=== PATIENT | female | born 1960 | race Caucasian/White ===

== ENCOUNTER 2016-09-22 09:10 | Inpatient (IN) | payer OTHER, MEDICAID ==
[~2016-09-22] VITALS: Ht 152.4 cm; Wt 61.2 kg
[~2016-09-22 09:10] MED LIST: BISCOLAX10 MG RC; CHLOROPHYLL PO; CLINDAMYCIN300 MG PO; FLEET ENEMA 13133 ML RC; LANOXIN0.25 MG PO; LEVAQUIN500 MG PO; MAPAP325 MG PO; OYSTER SHELL CA PO; POLYETHYLENE GLYCOL PO; PRILOSEC40 MG PO; REGLAN10 MG PO; TAB-A-VITE W/IR1 TAB PO; VITAMIN D; [UNRECOGNIZED DRUG - OTHER] PO; [UNRECOGNIZED DRUG - OTHER] PO
--- NOTE | 2016-09-22 09:10 | NUR ---
PATIENT BIB [facility] TO ER BED 4.
[2016-09-22 09:13] VITALS: BP 124/72
--- NOTE | 2016-09-22 09:15 | NUR ---
56F ADRIANA FROM [facility] C/O VOMITING X 0630 THIS MORNING; PER EMS, PT HAD 4 EPISODES OF VOMITING WHICH STOPPED AT 0730, AND NO VOMITING NOTED SINCE; ABDOMEN SOFT, NON-TENDER, ACTIVE BOWEL SOUNDS X 4 QUADRANTS; PT ALERT, APHASIC, PERRL, BUT ABLE TO FOLLOW SIMPLE COMMANDS; BL CONTRACTURES NOTED TO UPPER EXTREMITIES; PT ABLE TO TRAFFIC MAINTENANCE OFFICER BL HANDS WHEN ASKED, W/ MODERATE WEAKNESS; BL LUNG SOUNDS CLEAR, RR EVEN/UNLABORED, SKIN IS WARM/DRY AT THIS TIME; PT NOTED W/ DIAPER; HX: PROFOUND INTELLECTUAL DISORDER, CEREBRAL PALSY, PARA PLEGIA, ESOPHAGITIS, DYSPHAGIA, GERD, HERNIA, SCOLIOLIS, HYPOTHROIDISM, ARTHRITIS, MASTECTOMY TO LEFT BREAST. PT PLACED ON MONITOR, RESTING IN BED W/ HOB ELEVATED AND IN LOWEST POSITION; POSITIONED FOR COMFORT; ER MD MADE AWARE OF STATUS. WILL CONTINUE TO MONITOR. Addendum: 09/22/16 at 1228 by MEDSS PT NOTED W/ HEALED OLD SCAR TO RT HIP.
[2016-09-22] MEDS ORDERED: NACL 0.9% 1,000 ML IV SCH (09:18)
--- NOTE | 2016-09-22 09:18 | NUR ---
Patient being evaluated by physician at bedside.
[2016-09-22] MEDS ORDERED: ONDANSETRON 4 MG/2 ML VIAL IVP ONE (09:20)
[2016-09-22] MEDS ORDERED: FAMOTIDINE 20 MG/2 ML VIAL IVP ONE (09:20)
[2016-09-22] MEDS ORDERED: BENZTROPINE PO (09:25)
[2016-09-22] MEDS ORDERED: LACTULOSE10 GM/152 PO (09:26)
[2016-09-22] MEDS ORDERED: RANITIDINE HCL150 M2 PO (09:27)
[2016-09-22] MEDS ORDERED: SYNTHROID0.05 MG PO (09:27)
[2016-09-22] MEDS ORDERED: THERA-M W/MINER1 TAB PO (09:28)
[2016-09-22] MEDS ORDERED: LOTRIMIN 1%30 GM TP (09:29)
[2016-09-22] MEDS ORDERED: FLEET ENEMA 13133 ML RC (09:30)
[2016-09-22] MEDS ORDERED: IMODIUM2 MG PO (09:31)
[2016-09-22] MEDS ORDERED: ROBAFEN DM 10120 ML PO (09:31)
--- NOTE | 2016-09-22 10:18 | NUR ---
Patient appears to be resting comfortably in bed. Vital Signs within normal limits. Respirations even and unlabored. WILL CONTINUE TO MONITOR.
--- NOTE | 2016-09-22 11:20 | NUR ---
Patient appears to be resting comfortably in bed. Vital Signs within normal limits. Respirations even and unlabored. AGENTS' RECORDS CLERK AT BEDSIDE. WILL CONTINUE TO MONITOR.
[2016-09-22] MEDS ORDERED: FUROSEMIDE 40 MG/4 ML VIAL IVP ONE (11:40)
[2016-09-22] MEDS ORDERED: NACL 0.9% 1,000 ML IV ONE (11:40)
[2016-09-22] MEDS ORDERED: HYDROcodone/APAP 5/325 MG 1 TAB TAB PO PRN (12:10)
[2016-09-22] MEDS ORDERED: MORPHINE SULFATE 2 MG/ML SYR IVP PRN (12:10)
[2016-09-22] MEDS ORDERED: ONDANSETRON 4 MG/2 ML VIAL IVP PRN (12:10)
[2016-09-22] MEDS ORDERED: ACETAMINOPHEN 325 MG TAB PO PRN ×2 (12:10→16:05)
--- NOTE | 2016-09-22 12:37 | NUR ---
CALLED RN CATRACHO TO GIVE REPORT; STATES IN A PROCEDURE WITH ANOTHER PT; WILL CALL BACK FOR REPORT WHEN FINISHED.
--- NOTE | 2016-09-22 13:15 | NUR ---
Sergio mcrae in [facility] - 09/22/16 at 1323 by SAMM REPORT GIVEN TO ADRIÁN MONIQUE.
--- NOTE | 2016-09-22 13:15 | NUR ---
REPORT GIVEN TO DARIÁN MONIQUE; ENDORSED MESSAGE TO ADRIÁN MONIQUE THAT ADRIÁN VICTOR AT [facility] SHOULD BE CALLED FOR DISCHARGE INSTRUCTIONS WHEN PT READY TO BE DISCHARGED AT [phone].
--- NOTE | 2016-09-22 13:22 | NUR ---
Patient will be admitted to care of DR. MANCIA. Admited to MED-SURG. Will go to room 124A. Belongings list completed. Report to ADRIÁN MONIQUE.
[2016-09-22 13:40] VITALS: BP 146/87
--- NOTE | 2016-09-22 13:40 | NUR ---
PT. AWAKE, AROUSABLE TO NAME, FOLLOWS COMMANDS, APHASIC. NO SIGNS OF ACUTE DISTRESS, BREATHING BILATERAL AND SYMMETRICAL, ABDOMEN SOFT NO CURRENT EPISODES OF VOMITING AND NO SIGNS OF NAUSEA, SKIN INTACT WITH BILATERAL HEALED SCARS ON HIPS, PARAPLEGIC OFFLOAD TO PRESSURE AREAS, BOWEL AND BLADDER INCONTINENCE, FLACC SCORE 0, BED IN LOW POSITION WITH BILATERAL HALF SIDE RAILS UP, SAFETY PRECAUTIONS MAINTAINED. IV PATENT NO SIGNS OF REDNESS.
--- NOTE | 2016-09-22 14:20 | NUR ---
PT. PULLED OUT IV. WILL TRY TO REINSERT ORDERED.
[2016-09-22] MEDS ORDERED: LEVOFLOXACIN 250 MG/D5 PREMIX 50 ML IV SCH (14:35)
[2016-09-22 15:55] VITALS: BP 128/86
[2016-09-22] MEDS ORDERED: CLOTRIMAZOLE 1% 30 GM CRM TUBE TP PRN (16:05)
[2016-09-22] MEDS ORDERED: SODIUM PHOSPHATE 118 ML ENEM RC PRN (16:05)
[2016-09-22] MEDS ORDERED: guaiFENesin DM 200/20 MG-10 ML 10 ML UDC PO PRN (16:05)
[2016-09-22] MEDS ORDERED: LOPERAMIDE 2 MG CAP PO PRN (16:05)
[2016-09-22] MEDS ORDERED: BISACODYL 10 MG SUPP RC PRN (16:05)
[2016-09-22] MEDS ORDERED: SIMETHICONE PO PRN (16:05)
[2016-09-22] MEDS: NACL 0.9% 1,000 ML IV SCH ×2 (16:22→18:34)
[2016-09-22] MEDS ORDERED: ALUMINUM HYD/MAG/SIMETHICONE 30 ML UDC PO PRN (16:25)
--- NOTE | 2016-09-22 17:11 | NUR ---
STARTED NEW IV ON LEFT FOREARM, 22 G. UNABLE TO FLUSH PREVIOUS IV.
--- NOTE | 2016-09-22 18:39 | NUR ---
PAGED DR CHANDLER FOR FOLLOW UP, VTE SCORE 7 AND CLARIFICATION OF ORDER ON IV FLUID RATE, NO RESPONSE AT THIS TIME, WILL ENDORSE TO OPERATIONS MANAGEMENT TRAINEE NURSE.
--- NOTE | 2016-09-22 19:21 | NUR ---
PT AWAKE AND RESPONSIVE, NO SIGNS OF ACUTE DISTRESS, ENDORSED TO ONCOMING CLOTH FOLDER HAND NURSE FOR CONTINUITY OF CARE.
--- NOTE | 2016-09-22 19:22 | NUR ---
RECEIVED REPORT FROM ADRIÁN MONIQUE. INITIAL ASSESSMENT COMPLETED. PT IS ASLEEP AT THIS TIME, AROUSABLE BY NAME. IV ACCESS AT LEFT WRIST 22G, PATENT, INTACT AT THIS TIME. WITH SOFT MITTENS BOTH HANDS. NO SIGNS OF DISTRESS AT THIS TIME. SAFETY MEASURE ENSURE, BED IN LOW POSITION. CALL LIGHT WITHIN REACH. WILL CONTINUE TO MONITOR
[2016-09-22 20:00] VITALS: BP 132/81
[2016-09-22] MEDS: LACTULOSE 20 GM/30 ML UDC PO SCH (20:19)
--- NOTE | 2016-09-22 20:30 | NUR ---
PT KEEPS REMOVING HER NASAL CANNULA. O2 SAT 96% ROOM AIR.
[2016-09-22] MEDS ORDERED: LACTULOSE BULK 2400 GM/240 ML BTL PO SCH (21:00)
[2016-09-22] MEDS ORDERED: CHLOROPHYLL PO SCH (21:00)
--- NOTE | 2016-09-22 21:10 | NUR ---
DR. MANCIA NOTIFIED OF PT'S CRITICAL LAB RESULTS CA 14.6 AND BUN 66.
--- NOTE | 2016-09-22 21:45 | NUR ---
RECEIVED PT FROM AM SHIFT WITH IVF AT 80ML/HR. DR. MANCIA NOTIFIED THAT PT IS RECEIVING 80ML/HR INSTEAD OF 200ML/HR. SHE SAID IT IS OK. I TOLD HER THAT I WILL INCREASE TO 200ML/HR ORDERED. WILL CONTINUT TO MONITOR Addendum: 09/22/16 at 2210 by Bryan Saravia RN *CONTINUE AND NOT CONTINUT. DR. MANCIA SAID OK TO INCREASE IV TO 200ML/HR ORDERED AND MAKE SURE THAT IV IS PATENT.
--- NOTE | 2016-09-22 22:30 | NUR ---
MENDOZA CATH 16F INSERTED USING STERILE TECHNIQUE. URINE NOTED WITH GOOD FLOW.
--- NOTE | 2016-09-22 23:30 | NUR ---
PT TAKEN TO CT BY STREET AND BUILDING DECORATOR.
--- NOTE | 2016-09-22 23:57 | NUR ---
PT BACK TO ROOM FROM CT.
[2016-09-23] VITALS: BP 124/76
[2016-09-23] MEDS: NACL 0.9% 1,000 ML IV SCH ×5 (01:09→19:34)
--- NOTE | 2016-09-23 01:30 | NUR ---
PT ASLEEP AT THIS TIME. WILL CONTINUE TO MONITOR.
--- NOTE | 2016-09-23 02:15 | NUR ---
PT ASLEEP. WILL CONTINUE TO MONITOR.
[2016-09-23 04:00] VITALS: BP 141/64
--- NOTE | 2016-09-23 05:00 | NUR ---
AM CARE DONE. NO SIGNS OF DISTRESS NOTED. WILL CONTINUE TO MONITOR.
--- NOTE | 2016-09-23 06:39 | NUR ---
RISK SPECIALISTLIGIA VARNER ATTEMPTED TO DRAW BLOOD FIRST ATTEMPT BUT WAS UNSUCCESSFUL, ASSISTED HER ON HER 2ND AND 3RD ATTEMPT TO DRAW BLOOD FROM THE PT AND SHE SAID SHE WILL CHECK IF THE BLOOD IS ENOUGH.
--- NOTE | 2016-09-23 07:30 | NUR ---
REPORT GIVEN TO ADRIÁN CHAN FOR CONTINUITY OF CARE. NO SIGNS OF DISTRESS AT THIS TIME. CRITICAL LAB RESULTS CA 13.[address] CHANDLER, NO ORDERS MADE.
--- NOTE | 2016-09-23 07:31 | NUR ---
RECEIVED ON BED AAOX1, CONFUSED. NO SOB NOTED. NO C/O PAIN AT THIS TIME. UPPER AND LOWER EXTREMITIES CONTRACTED. IV TO LT HAND PATENT AND INTACT. CHEST DIMINISHED AIR ENTRY TO THE BASES. ABDOMEN SOFT, BOWEL SOUNDS PRESENT. NO EDEMA NOTED. WITH MENDOZA DRAINING MODERATE AMOUNTS OF CLEAR YELLOW URINE. INSTRUCTED PT TO CALL FOR ASSISTANCE. BED ON LOW POSITION, 3 SIDE RAILS UP. BED ALARM ON. WILL REPOSITION PT EVERY 2 HRS.
[2016-09-23 08:00] VITALS: BP_SYST 137; BP_DIAS 103; BP_DIAS 83
--- NOTE | 2016-09-23 08:30 | NUR ---
NPO MAINTAINED. MOUTH CARE DONE.
[2016-09-23] MEDS: POLYETHYLENE GLYCOL 17 GM/PKT PO SCH (09:00)
[2016-09-23] MEDS: LACTULOSE 20 GM/30 ML UDC PO SCH ×2 (09:00→21:00)
[2016-09-23] MEDS ORDERED: NON-FORMULARY ITEM (Omeprazole* (Prilosec*) 40 MG) PO SCH (09:00)
[2016-09-23] MEDS ORDERED: MULTIVIT TH IRON OTHER MIN PO SCH (09:00)
[2016-09-23] MEDS ORDERED: MULTIVITAMIN WITH IRON PO SCH (09:00)
[2016-09-23] MEDS: LEVOTHYROXINE 0.05 MG TAB PO SCH (09:00)
[2016-09-23] MEDS ORDERED: ALBUTEROL SULFATE/IPRATROPIU 3 ML SOL IH PRN (11:40)
[2016-09-23 12:00] VITALS: BP 137/78
--- NOTE | 2016-09-23 13:00 | NUR ---
PT FED WITH PUREE DIET WITH STRICT ASPIRATION PRECAUTIONS. PT REFUSED TO SWALLOW FOOD, SPITS FOOD TO THE SIDE OF HER MOUTH. DR. MANCIA NOTIFIED.
[2016-09-23] MEDS: CLINDAMYCIN 600 MG in DEXTROSE 5% 50 ML IV SCH ×2 (13:31→21:14)
--- NOTE | 2016-09-23 14:30 | NUR ---
PT IS FOR SWALLOW EVALUATION. NPO MAINTAINED.
[2016-09-23] MEDS ORDERED: ALBUTEROL SULFATE/IPRATROPIU 3 ML SOL IH SCH (15:00)
[2016-09-23 16:00] VITALS: BP 118/70
--- NOTE | 2016-09-23 18:00 | NUR ---
PT RESTING. NO SOB NOTED. NO SIGNS OF PAIN. NPO MAINTAINED.
--- NOTE | 2016-09-23 19:03 | NUR ---
PT RESTING. NO SOB NOTED. NO SIGNS OF PAIN AT THIS TIME. WILL ENDORSE TO NEXT SHIFT NURSE FOR CONTINUITY OF CARE.
--- NOTE | 2016-09-23 19:30 | NUR ---
RECEIVED REPORT FROM MORNING SHIFT NURSE AT BEDSIDE, PT IS AAOX1, CONFUSED, UNABLE TO FOLLOW COMMANDS AND MAKE NEEDS KNOWN. DENIES PAIN, NO SOB/DISTRESS NOTED, BREATHING EVEN AND UNLABORED, ON RA. TELE MONITOR WITH SR. SOFT ABD WITH ACTIVE BOWEL SOUNDS, CURRENTLY ON NPO. IV SITE TO LEFT WRIST 22GA RUNNING WITH NC. AFEBRILE, SKIN IS INTACT, WARM AND DRY TO TOUCH. MENDOZA CATHETER IN PLACE, DRAINING YELLOW CLEAR URINE VIA GRAVITY. BEDBOUND, MITTENS PLACED ON MICHELLE. ARM FOR PROTECTION OF PULLING TUBES, SAFETY MEASURE MAINTAINED, CALL LIGHT WITHIN REACH, WILL CONTINUE TO MONITOR.
[2016-09-23 20:00] VITALS: BP 157/61
--- NOTE | 2016-09-23 21:00 | NUR ---
SCHEDULED PO MEDICATION HOLD AT THIS TIME DUE TO PT IS ON NPO.
[2016-09-24] VITALS (7 sets, daily range): BP systolic 117–153; BP diastolic 68–92
--- NOTE | 2016-09-24 | NUR ---
NO CHANGE OF CONDITION AT THIS TIME. VSS.
[2016-09-24] MEDS: NACL 0.45% 1,000 ML IV SCH (00:32)
[2016-09-24] MEDS: NACL 0.9% 1,000 ML IV SCH ×3 (00:58→15:07)
--- NOTE | 2016-09-24 04:00 | NUR ---
RESTING IN BED, NO CHANGE OF CONDITION AT THIS TIME, VSS.
[2016-09-24] MEDS: CLINDAMYCIN 600 MG in DEXTROSE 5% 50 ML IV SCH ×3 (05:00→21:11)
--- NOTE | 2016-09-24 07:20 | NUR ---
PT IS RESTING IN BED, NO CHANGE OF CONDITION AT THIS TIME, REPORT GIVEN TO MORNING SHIFT NURSE FOR CONTINUE OF CARE.
--- NOTE | 2016-09-24 07:30 | NUR ---
RECEIVED PT IN BED, AWAKE, ALERT ORIENTEDX1. AROUSABLE TO VOICE. NO SOB NOTED. NO SIGNS AND SYMPTOMS OF ACUTE PAIN OR DISCOMFORT NOTED AT THIS TIME. POSITIVE BOWEL SOUNDS NOTED ON FOUR QUADRANTS. OFFERED LIQUIDS TOLERATED. OFFLOAD PRESSURE AREAS. CALL LIGHT WITHIN REACH. SAFETY PRECAUTION IN PLACE.
[2016-09-24] MEDS ORDERED: SODIUM PHOSPHATE 118 ML ENEM RC PRN (07:40)
[2016-09-24] MEDS: CALCIUM ACETATE 667 MG TAB PO SCH (08:00)
--- NOTE | 2016-09-24 08:13 | NUR ---
PATIENT HAS BEEN SCREENED AND CATEGORIZED HIGH NUTRITION RISK. PATIENT WILL BE SEEN WITHIN 1-2 DAYS OF ADMISSION. 09/23/16-09/24/[address]
--- NOTE | 2016-09-24 08:40 | NUR ---
STU FROM LABS CALLED REGARDING PT MRSA NARES POSITIVE. DR TORRES MADE AWARE. ISOLATION PRECAUTION IN PLACE. PT TRANSFERRED TO ROOM 114 FROM [facility].
[2016-09-24] MEDS: PANTOPRAZOLE 40 MG TABEC PO SCH (09:00)
[2016-09-24] MEDS: LACTULOSE 20 GM/30 ML UDC PO SCH ×2 (09:00→21:11)
[2016-09-24] MEDS: POLYETHYLENE GLYCOL 17 GM/PKT PO SCH (09:00)
[2016-09-24] MEDS: LEVOTHYROXINE 0.05 MG TAB PO SCH (09:00)
[2016-09-24] MEDS: MUPIROCIN 2% OINT 22 GM TUBE TP SCH ×2 (09:57→21:12)
[2016-09-24] MEDS: CHLORHEXADINE GLUC 2% CLOTH TP SCH (09:57)
[2016-09-24] MEDS: LEVOFLOXACIN 500 MG/D5W PREMIX 100 ML IV SCH (10:05)
--- NOTE | 2016-09-24 10:50 | NUR ---
WOUND CARE EVALUATION NOTES: REASON FOR EVALUATION: LOW RONN SCORE COMPLETE SKIN ASSESSMENT DONE ON THIS 56 Y/O FEMALE PATIENT FROM [facility] TO [facility], WITH INITIAL DIAGNOSIS OF NAUSEA, VOMITING AND HYPOGLYCEMIA. PAST MEDICAL HISTORY INCLUDE DEVELOPMENTAL DELAY, CEREBRAL PALSY, SCOLIOSIS, QUADRIPLEGIA, SEIZURES, CHF, AND BREAST CANCER. ALL ABOVE INFORMATION WAS OBTAINED FROM THE ADMISSION H&P. LABS ARE WBC 4.3, H/H 8.1/24.4, GLUCOSE 85, ALBUMIN 2.9, PT/INR 9.9/1.0 AND PTT 19.2. CURRENT MEDS INCLUDE MULTIVITAMINS, LEVOFLOXACIN, CLINDAMYCIN AND MORPHINE. PATIENT IS AWAKE, NON VERBAL AND UNABLE TO FOLLOW SIMPLE COMMANDS. ON 02 PER NASAL CANNULA. SKIN WARM TO TOUCH WNL, TOENAILS WNL, NO EDEMA, NO HAIR GROWTH AND +2 BILATERAL PEDAL PULSES. URINE AND BOWEL INCONTINENT, WITH FC 14FR PATENT AND INTACT TO LIGHT AIME URINE IN MODERATE AMOUNT. MULTIPLE SURGICAL SCARRING NOTED ON THE LEFT TROCHANTER AND MIDLINE BACK. BLE ARE CONTRACTED. NEEDS MAX ASSISTANCE IN TURNING. INITIAL PLAN OF CARE AND PRESSURE PREVENTIVE MEASURES DISCUSSED, UNABLE TO VERBALIZE UNDERSTANDING, WILL REINFORCE TEACHING. INTEGUMENTARY: PERIAREA - RED AND MOIST LEFT TROCHANTER - SURGICAL - PINK SCARRING MIDLINE BACK - SURGICAL - PINK SCARRING RECOMMENDATIONS: -CLEANSE PERIAREA WITH MILD SOAP AND WATER, PAT, DRY, APPLY HYDRAGUARD BIDWC AND PRN WITH SOILING. LEAVE OPEN TO AIR --TURN AND REPOSITION PATIENT Q2H TO LEFT AND RIGHT SIDE ONLY TO OFFLOAD SACRALCOCCYX -ASSESS AND MONITOR SKIN CONDITION DURING POSITION CHANGE, PLEASE PAY PARTICULAR ATTENTION TO SACRALCOCCYX, ELBOWS AND HEELS -OFFLOAD BILATERAL HEELS BY PLACING PILLOWS UNDER CALVES AT ALL TIMES, UNLESS OTHERWISE CONTRAINDICATED -KEEP SKIN CLEAN AND DRY AT ALL TIMES. RECOMMENDATIONS DISCUSSED WITH PRIMARY AND RESIDENT PHYSICIAN, DR. TORRES WILL FOLLOW PATIENT Q 7 DAYS AND PRN. PLEASE CONTACT [facility] FOR ANY CONCERNS, QUESTIONS AND CHANGES IN SKIN CONDITION.
--- NOTE | 2016-09-24 11:00 | NUR ---
MARCIA CAME TO SEE PT AND DID SWALLOW EVAL. RECOMMENDED PT FOR FEEDING ASSISTANCE, NECTAR THICK FLUIDS AND PUREED DIET. SHE SAID SHE WILL PUT THE ORDERS IN.
--- NOTE | 2016-09-24 11:34 | NUR ---
BATTERBOARD SETTER note (bedside swallow evaluation completed) [phone]. Bedside swallow evaluation completed, please see report for details. BATTERBOARD SETTER provided pt with education regarding purpose of evaluation and rationale for recommendations; however, pt unable to benefit from education provided. No family present at this time. Recommend: 1) when cleared for solids by physician, pureed textures 2) nectar-thick liquids by spoon only 3) strict aspiration/GERD precautions (including pt must be fully awake/upright/alert for any PO intakes, alternate small/slow bites and sips, stop giving PO if pt becomes sleepy/less alert/SOB/coughing, keep pt upright for minimum of 30 minutes following PO intakes to reduce risk for reflux/aspiration) 4) 100% feeding assistance 5) BATTERBOARD SETTER to f/u for dysphagia/diet tolerance 1-2 x week x 2 weeks to continue to assess pt's ability to take PO safely, as pt willing/able to participate safely. G-codes: [id number] [facility] NOMS level 3. PVE for d/w RN Bhavana) prior to and following evaluation completion. BATTERBOARD SETTER posted bedside swallow precautions sign in plastic steiner mounted to wall near pt's HOB.
[2016-09-24] MEDS ORDERED: guaiFENesin DM 200/20 MG-10 ML 10 ML UDC PO PRN (12:55)
[2016-09-24] MEDS ORDERED: LOPERAMIDE 2 MG CAP PO PRN (12:57)
[2016-09-24] MEDS ORDERED: HYDRAGUARD CREAM TP PRN (13:55)
--- NOTE | 2016-09-24 14:18 | NUR ---
CHECKED WITH DR. TORRES THAT HE IS AWARE OF CURRENT PHOSPHORUS LEVEL OF PT. OF 5.0.
--- NOTE | 2016-09-24 19:34 | NUR ---
PT AWAKE, NO SIGNS AND SYMPTOMS OF SOB, PAIN OR DISCOMFORT NOTED AT THIS TIME. ENDORSED TO UPCOMING SHIFT ON STABLE CONDITION.
--- NOTE | 2016-09-24 19:40 | NUR ---
RECEIVED PT IN STABLE CONDITION FROM AM NURSE. AWAKE,BUT WITH CONFUSION. NO ACUTE DISTRESS NOTED. REFUSED O2 NC. BUT O2 SAT WAS CHECKED 94%. BEDREST. ON TELE MONITOR. WITH IVF INFUSIG WELL ON THE LT WRIST #22. CLEAR AND PATENT.
--- NOTE | 2016-09-24 19:40 | NUR ---
CONTINUATION OF NOTES ABOVE. PT HAS BRUISED ON RT UPPER ARM. MENDOZA CATH TO GRAVITY DRAINING WELL TO CLEAR URINE. BED ON LOW POSITION. SIDE RAILS UP X2. FREQUENT ROUNDS NEEDED. WILL CONTINUE TO MONITOR.
--- NOTE | 2016-09-24 21:00 | NUR ---
REPOSITIONED FOR COMFORT. NO DISTRESS NOTED. MENDOZA CATH IN PLACED.
--- NOTE | 2016-09-24 22:30 | NUR ---
AWAKE BUT NO DISTRESS NOTED . TRIED TO PUT BACK O2 BUT REFUSED. O2 SAT 93%.
--- NOTE | 2016-09-24 23:45 | NUR ---
HAD X1 SOFT GREENISH BM. CLEANED AND KEPT DRY. PERINEAL AREA PINK AND INTACT.
[2016-09-25] VITALS (7 sets, daily range): BP systolic 135–153; BP diastolic 71–91
[2016-09-25] MEDS: HYDRAGUARD CREAM TP SCH ×2 (00:31→12:16)
--- NOTE | 2016-09-25 02:00 | NUR ---
AWAKE, BUT NO ACUTE DISTRESS NOTED. WILL CONTINUE TO MONITOR.
--- NOTE | 2016-09-25 04:30 | NUR ---
AHD ANOTHER SOFT BM THIS AM. CLEANED AND KEPT DRY. REPOSITIONED FOR COMFORT.
[2016-09-25] MEDS: CLINDAMYCIN 600 MG in DEXTROSE 5% 50 ML IV SCH ×3 (05:18→21:04)
--- NOTE | 2016-09-25 06:22 | NUR ---
SLEEPING AT THIS TIME. NO DISTRESS NOTED.
--- NOTE | 2016-09-25 07:20 | NUR ---
ENDORSED PT IN STABLE CONDITION TO AM NURSE.
--- NOTE | 2016-09-25 07:23 | NUR ---
RECEIVED PT IN BED. AWAKE, ALERT, ORIENTED X1. NO SOB NOTED AT THIS TIME. NO SIGNS AND SYMPTOMS OF ACUTE PAIN OR DISCOMFORT NOTED. REPOSITIONING DONE ORDERED. OFFLOAD BONY PROMINENCE. SAFETY PRECAUTION IN PLACE CALL LIGHT WITHIN REACH.
[2016-09-25] MEDS: VIT-B COMP/VIT-C/FOLIC ACID 1 TAB PO SCH (08:44)
[2016-09-25] MEDS: POLYETHYLENE GLYCOL 17 GM/PKT PO SCH (08:44)
[2016-09-25] MEDS: LEVOTHYROXINE 0.05 MG TAB PO SCH (08:44)
[2016-09-25] MEDS: CALCIUM ACETATE 667 MG TAB PO SCH (08:44)
[2016-09-25] MEDS: PANTOPRAZOLE 40 MG TABEC PO SCH (08:44)
[2016-09-25] MEDS: LACTULOSE 20 GM/30 ML UDC PO SCH ×2 (09:01→21:05)
[2016-09-25] MEDS: MUPIROCIN 2% OINT 22 GM TUBE TP SCH ×2 (09:01→21:08)
[2016-09-25] MEDS: CHLORHEXADINE GLUC 2% CLOTH TP SCH (09:01)
[2016-09-25] MEDS: NACL 0.45% 1,000 ML IV SCH ×2 (11:37→18:39)
--- NOTE | 2016-09-25 12:12 | NUR ---
SHARON LEARNING CONSULTANT CAREGIVER OF PT FROM [facility] CAME TO SEE PT AND UPDATED WITH PT CONDITION AND STATUS.
--- NOTE | 2016-09-25 13:15 | NUR ---
CALLED BOARD AND [employer] DIAS AT [phone]. NO ANSWER LEFTA MESSAGE FOR [facility]ON. AWAITING CALL BACK REGARDING DISCHARGE ORDER FOR PT.
[2016-09-25] MEDS ORDERED: CLINDAMYCIN150 MG PO (13:44)
[2016-09-25] MEDS ORDERED: LEVOFLOXACIN500 MG PO (13:44)
[2016-09-25] MEDS ORDERED: METOPROLOL 25 MG TAB PO SCH (13:56)
--- NOTE | 2016-09-25 14:09 | NUR ---
ROSALIND PRODUCTION LINE OPERATOR CALLED MOTHER OF PATENT MADE AWARE OF DISCHARGE AND TO CALL THE BOARDING CARE ARUN VICTOR RN TO CALL US BACK.
--- NOTE | 2016-09-25 14:46 | NUR ---
CALLED RT TO DO BREATHING TX TO PT DUE TO 02 SAT OF 88-89%. SAID THEY WILL COME TO SEE PT.
--- NOTE | 2016-09-25 15:15 | NUR ---
KAYLEIGH CALLED BACK SAID THAT IT WILL BE TOO LATE TO CANE FLUME WATCHER PT AT THIS TIME AND IF THEY CAN JUST RECEIVE PT TOMORROW. SPOKE WITH ELECTRIC MOTOR WINDERS ASSEMBLER ABOUT THE TRANSFER. AND CALLED KAYLEIGH BACK LEFT VOICE MAIL AWAITING CALL BACK.
--- NOTE | 2016-09-25 16:51 | NUR ---
FOLLOWED UP WITH RT FOR THE BREATHING TREATMENT SPOKE WITH SANTANA SHE SAID SHE IS COMING OVER FOR THE BREATHING TREATMENT.
--- NOTE | 2016-09-25 17:04 | NUR ---
CALLED TO ROOM BY ADRIÁN MENSAH DUE TO LOW O2 SAT PT WAS FOUND ON RA AND TRIED TO PLACED PT ON O2 AT 2LNC PT HAS MITTENS ON AND KEEPS TAKING O2 OFF SPOKE WITH DR. TORRES AND TOLD THAT PT WILL NOT LEAVE O2 ON WENT BACK TO CHECK ON PT AND O2 WAS 92% INFORMED ON STATUS OF PT AND NO OTHER CHANGES MADE CHARGE NURSE ROSALIND ALSO INFORMED
--- NOTE | 2016-09-25 19:24 | NUR ---
ENDORSED TO UPCOMING SHIFT FOR CONTINUITY OF CARE. PT ON STABLE CONDITION. KEPT CLEAN DRY AND COMFORTABLE NEEDS ATTENDED.
--- NOTE | 2016-09-25 19:40 | NUR ---
RECEIVED PT IN STABLE CONDITION FROM AM NURSE. AWAKE, BUT CONFUSED. HAS HX: MENTALLY DELAY.CEREBRAL PALSY. ON TELE MONITOR. ISOLATION FOR + MRSA NARES. NO ACUTE DISTRESS NOTED. REFUSED O2 CANNULA, O2 SAT 92%. IVF INFUSING WELL ON THE LT WRIST #22. CLEAR AND PATENT. BED ON LOW POSITION. SIDE RAILS UP X2. MENDOZA CATHETER TO GRAVITY, DRAINING CLEAR YELLOW URINE. FREQUENT ROUNDS NEEDED. CALL LIGHT PLACED WITHIN EASY REACH. WILL CONTINUE TO MONITOR.
--- NOTE | 2016-09-25 21:05 | NUR ---
HAD A MODERATE SOFT BM . CLEANED AND KEPT DRY. PERINEAL AREA INTACT, NO REDNESS NOTED. REPOSITIONED FOR COMFORT. NO DISTRESS NOTED.
[2016-09-25] MEDS: METOPROLOL 25 MG TAB PO SCH (21:08)
[2016-09-25] MEDS ORDERED: BACTROBAN 2%20 MG/GM TP (23:49)
[2016-09-25] MEDS ORDERED: APLICARE ANTIS118 M2 TP (23:49)
[2016-09-26] MEDS: HYDRAGUARD CREAM TP SCH ×2 (01:00→13:05)
[2016-09-26] MEDS: NACL 0.45% 1,000 ML IV SCH (03:38)
[2016-09-26 04:00] VITALS: BP 145/80
--- NOTE | 2016-09-26 04:00 | NUR ---
VITAL SIGNS TAKEN AND STABLE. NO DISTRESS NOTED. WILL CONTINUE TO MONITOR.
[2016-09-26] MEDS: CLINDAMYCIN 600 MG in DEXTROSE 5% 50 ML IV SCH ×3 (04:43→21:26)
--- NOTE | 2016-09-26 06:30 | NUR ---
AWAKE, CONFUSED. BUT NO DISTRESS NOTED DURING THE NIGHT.
--- NOTE | 2016-09-26 07:25 | NUR ---
ENDORSED PT IN STABLE CONDITION TO AM NURSE.
--- NOTE | 2016-09-26 07:30 | NUR ---
REPORT RECIEVED FROM FILTER PRESS TENDER HEAD NURSE, PT AWAKE RESTING QUIETLY IN NAD, RESP EVEN UNLABORED ON ROOM AIR, IV TO L WRIST INFUSING WELL SITE CLEAR, MENDOZA DRAINING WITHOUT PROBLEM, CALL LOVE WITHIN REACH, SAFETY MEASURES MET, SIDE RAILS UP X2, BED LOCKED IN LOW POSITION, WILL CONTINUE TO MONITOR
[2016-09-26 08:00] VITALS: BP 157/52
[2016-09-26] MEDS: CALCIUM ACETATE 667 MG TAB PO SCH (09:00)
[2016-09-26] MEDS: VIT-B COMP/VIT-C/FOLIC ACID 1 TAB PO SCH (09:01)
[2016-09-26] MEDS: LEVOTHYROXINE 0.05 MG TAB PO SCH (09:01)
[2016-09-26] MEDS: POLYETHYLENE GLYCOL 17 GM/PKT PO SCH (09:01)
[2016-09-26] MEDS: PANTOPRAZOLE 40 MG TABEC PO SCH (09:01)
[2016-09-26] MEDS: LACTULOSE 20 GM/30 ML UDC PO SCH ×2 (09:02→21:26)
[2016-09-26] MEDS: METOPROLOL 25 MG TAB PO SCH ×2 (09:02→21:26)
[2016-09-26] MEDS: MUPIROCIN 2% OINT 22 GM TUBE TP SCH ×2 (09:04→21:26)
[2016-09-26] MEDS: LEVOFLOXACIN 500 MG/D5W PREMIX 100 ML IV SCH (09:20)
--- NOTE | 2016-09-26 09:44 | NUR ---
SALON COORDINATOR note (dysphagia therapy provided) [phone]. S: SALON COORDINATOR provided pt with dysphagia therapy following clearance by RN (Arely). Upon SALON COORDINATOR's entrance to pt's room, pt was noted to be demonstrating effortful breathing pattern and when SALON COORDINATOR checked pt's wrist band on pt's right wrist, SALON COORDINATOR noted that it was tight enough to be making a analisa on pt's wrist and SALON COORDINATOR unable to fit one finger under wrist band. Pt also noted to have nutrition shake appearing material in/on her mouth (which SALON COORDINATOR wiped away with moistened cloth). SALON COORDINATOR noted that pt's nutrition shake was not thickened to recommended nectar-thick consistency and had straw in it. Pt was recommended for nectar-thick liquids by spoon only. Pt was also noted to not have O2 via NC on. SALON COORDINATOR replaced pt's O2 via NC, which pt promptly repeated tried to remove despite multiple encouragements/educations/gentle tactile cues provided by SALON COORDINATOR and RN. SALON COORDINATOR provided education to RNs (Arely and Domenico) regarding recommendations and pt's condition upon SALON COORDINATOR's entrance to pt's room. SALON COORDINATOR requested for RN (Arely) to clarify pt's diet order to include direct specification for ALL liquids to be thickened to nectar-thick consistency (including nutrition shake). O/A: SALON COORDINATOR trialed pt on thin liquid via spoon - pt with significant bolus loss anteriorly and demonstrated delayed coughing. SALON COORDINATOR trialed nectar-thick liquid via spoon, which pt tolerated with minimal anterior bolus loss and no overt signs/symptoms of aspiration at this time. RN administered crushed PO medications in applesauce via spoon - which pt tolerated with minimal anterior bolus loss and not overt signs/symptoms of aspiration at this time. Isolation precautions maintained throughout dysphagia therapy session by SALON COORDINATOR. P: Continue to recommend: 1) pureed textures 2) NECTAR-thick liquids (for ALL liquids including nutrition shake) to be given by SPOON ONLY (no straws) 3) STRICT aspiration/GERD precautions (including pt must be fully awake/alert/upright for any PO intakes, alternate small/slow bites and sips, all liquids to be given by spoon only, stop PO if pt becomes sleepy/less alert/SOB/coughing) 4) 100% feeding assistance 5) SALON COORDINATOR to continue to f/u per current SALON COORDINATOR plan of care as pt willing/able to participate safely, as appropriate. PVE for d/w RNs (Arely and Domenico).
--- NOTE | 2016-09-26 09:50 | NUR ---
SPEECH THERAPIST AT BEDSIDE FOR EVAL, UPON SITTING PT UP AND ATTEMPT FEEDING PT NOTED TO BE WITH LABORED BREATHING RR24, O2 SAT 87-90 ON ROOM AIR, BREATH SOUNDS CLEAR, DIMINISHED ON LEFT, PT PLACED ON 3L NC, PT REPEATEDLY TAKES IT OFF, ALSO GENERALIZED EDEMA NOTED TO BILAT UPPER EXT, DR RENE NOTIFIED BY ADRIÁN NAIR, WILL CONTINUE TO MONITOR
[2016-09-26] MEDS: CHLORHEXADINE GLUC 2% CLOTH TP SCH (10:49)
--- NOTE | 2016-09-26 11:05 | NUR ---
SS NOTE: MESSAGE LEFT FOR PT'S PARENTS, MARLEY AND DOROTA REGARDING SHORT TERM SNF PLACEMENT FOR PT I SPOKE WITH CAREGIVER, BUBBA FROM [facility]. SHE STATED THAT PT HAS BEEN TO [facility] BEFORE AND BELIEVES THAT PT'S PARENTS LIKED THE FACILITY FOR PT.
--- NOTE | 2016-09-26 11:30 | NUR ---
DR VELAZQUEZ MADE AWARE OF POTASSIUM 3.2
[2016-09-26] MEDS ORDERED: POTASSIUM CHLORIDE 40 MEQ, LIDOCAINE 1% 25 MG in NACL 0.9% 250 ML IV SCH (12:00)
--- NOTE | 2016-09-26 12:04 | NUR ---
SS NOTE: I RECEIVED A CALL FROM PT'S MOTHER, DOROTA AND SHE CONFIRMED THAT SHE WOULD LIKE PT SENT TO [facility] UPON DISCHARGE. Addendum: 09/26/16 at 1340 by Simin Shah SS PER MARCELA FROM [facility] ([phone]), THEY ARE ABLE TO ACCEPT PT.
--- NOTE | 2016-09-26 12:35 | NUR ---
PT SITTING UP IN BED AWAKE, CALM, WITH O2 VIA NC 3L, MARIANA WELL, HANDS IN MITTENS TO PREVENT PULLING ON IV LINES AND IVF INFUSING, SITE CLEAR, MENDOZA DRAINING DARK YELLOW URINE, PULSE OX 100% AT THIS TIME, ALL SAFETY MEASURES IN PLACE, WILL CONTINUE TO MONITOR
--- NOTE | 2016-09-26 13:45 | NUR ---
LOOSE BM, SAMM CARE DONE, HYDRAGUARD APPLIED, SLIGHT REDNESS TO BUTTOCKS, SKIN INTACT, PT REMAINS ON O2 3L NC, O2SAT 96%, RESP EVEN SLIGHTLY INCREASED WORK OF BREATHING WITH EXERTION, MENDOZA CONTINUES TO DRAIN DARK YELLOW URINE, IVF/POTASSIUM INFUSING, SITE CLEAR, SIDE RAILS UP, BED LOCKED IN LOW POSITION, WILL CONTINUE TO MONITOR
[2016-09-26 16:00] VITALS: BP 158/85
--- NOTE | 2016-09-26 18:00 | NUR ---
PT RESTING QUIETLY IN NAD, RESP EVEN UNLABORED, REPEATEDLY TAKES OFF O2, REPLACED AGAIN, IV K INFUSING SITE CLEAR, PT REMAINS WITH MITTENS TO PREVENT PULLING LINES, MENDOZA DRAINING WELL WITHOUT PROBLEM, POSITION CHANGED, ASSISTED WITH FEEDING, ONLY TOOK SOME SHERBET, SAFETY MEASURES IN PLACE, WILL CONTINUE TO MONITOR
--- NOTE | 2016-09-26 19:25 | NUR ---
ENDORSED PLAN OF CARE. WILL CONTINUE TO MONITOR.
--- NOTE | 2016-09-26 19:25 | NUR ---
RECEIVED REPORT FROM DAY SHIFT NURSE. PT IS ALERT AND AWAKE, FLACC- 0. ON NASAL CANNULA AT 2LPM, NO S/S OF RESPIRATORY DISTRESS/DISCOMFORT NOTED. IV SITE IS PATENT AND INTACT. MENDOZA CATHETER ALREADY IN PLACED. PLAN OF CARE DISCUSSED, UNABLE TO VERBALIZE UNDERSTANDING. SAFETY MEASURES CHECKED, CALL LIGHT WITHIN REACH. WILL CONTINUE TO MONITOR.
--- NOTE | 2016-09-26 21:31 | NUR ---
DUE MEDS GIVEN. PT TOLERATED MEDS WELL.
[2016-09-27] VITALS: BP 158/79
--- NOTE | 2016-09-27 | NUR ---
V/S CHECKED, FLACC 0. NO SOB NOTED. REPOSITIONED THE PT.
[2016-09-27] MEDS: NACL 0.45% 1,000 ML IV SCH (00:55)
[2016-09-27] MEDS: HYDRAGUARD CREAM TP SCH ×2 (02:05→13:00)
--- NOTE | 2016-09-27 02:18 | NUR ---
EYES CLOSED, RESTING QUIETLY, BREATHING EVENLY AND UNLABORED. NO SOB NOTED.
[2016-09-27] MEDS: CLINDAMYCIN 600 MG in DEXTROSE 5% 50 ML IV SCH ×2 (04:13→15:25)
--- NOTE | 2016-09-27 04:27 | NUR ---
REPOSITIONED THE PT. NO SOB NOTED. FLACC -0. CALL LIGHT WITHIN REACH
--- NOTE | 2016-09-27 06:05 | NUR ---
AM CARE DONE. LINEN CHANGED. REPOSITIONED THE PT. NOT IN DISTRESS, TOLERATED WELL. SATO2 95%, PT REFUSED NASAL CANNULA.
--- NOTE | 2016-09-27 07:15 | NUR ---
ENDORSED REPORT TO DAY SHIFT NURSE FOR CONTINUITY OF CARE. PT IN STABLE CONDITION.
--- NOTE | 2016-09-27 07:30 | NUR ---
RECEIVED ON BED AAOX1, TO NAME ONLY. NO SOB NOTED. NO SIGNS OF PAIN AT THIS TIME. IV TO LT HAND PATENT AND INTACT. CHEST, DIMINISHED AIR ENTRY TO THE BASES. ABDOMEN SOFT, BOWEL SOUNDS PRESENT. WITH [place] DRAINING MODERATE AMOUNTS OF CLEAR YELLOW URINE. PT IS CONTRACTED ON BUE AND BLE. WILL REPOSITION PT EVERY 2 HRS. BED ON LOW POSITION, BED ALARM ON. WILL CONTINUE TO MONITOR.
[2016-09-27 08:00] VITALS: BP 162/77
[2016-09-27] MEDS: LACTULOSE 20 GM/30 ML UDC PO SCH (09:00)
[2016-09-27] MEDS: POLYETHYLENE GLYCOL 17 GM/PKT PO SCH (09:00)
[2016-09-27] MEDS: CHLORHEXADINE GLUC 2% CLOTH TP SCH (09:05)
--- NOTE | 2016-09-27 09:30 | NUR ---
PT CONSUMED 30% OF BREAKFAST SERVED. WITH ASPIRATION PRECAUTIONS.
--- NOTE | 2016-09-27 10:10 | NUR ---
SS NOTE: PER MARCELA FROM [facility] ([phone]), PT CAN GO TO ROOM [address] RITO GRIGSBY ANYTIME UPON DISCHARGE.
[2016-09-27] MEDS: MUPIROCIN 2% OINT 22 GM TUBE TP SCH (10:15)
[2016-09-27] MEDS: CALCIUM ACETATE 667 MG TAB PO SCH (10:15)
[2016-09-27] MEDS: VIT-B COMP/VIT-C/FOLIC ACID 1 TAB PO SCH (10:15)
[2016-09-27] MEDS: PANTOPRAZOLE 40 MG TABEC PO SCH (10:15)
[2016-09-27] MEDS: LEVOTHYROXINE 0.05 MG TAB PO SCH (10:15)
[2016-09-27] MEDS: METOPROLOL 25 MG TAB PO SCH (10:15)
--- NOTE | 2016-09-27 12:04 | NUR ---
09/27/16 RD FOLLOW UP COMPLETED PLEASE REFER TO NUTRITION PROGRESS NOTE UNDER CARE ACTIVITY FOR ESTIMATED NUTRITION NEEDS. RD RECOMMENDATIONS: 1. CONTINUE PUREE, NECTAR THICKENED LIQUIDS TOLERATED PER MD 2. CONTINUE TO ENCOURAGE INCREASED PO INTAKES 3. RD WILL F/U 3-5 DAYS; MODERATE RISK. ARTURO PETERSON RD
--- NOTE | 2016-09-27 12:15 | NUR ---
PT CONSUMED 50% OF BREAKFAST SERVED. WITH ASPIRATION PRECAUTIONS.
[2016-09-27] MEDS ORDERED: NACL IV (14:19)
[2016-09-27] MEDS ORDERED: KCL 20 MEQ/WATER INJ PREMIX 100 ML IV SCH (14:30)
--- NOTE | 2016-09-27 14:48 | NUR ---
CM NOTE: SPOKE TO ANATOLY FROM [facility] TO SET UP TRANPORT. 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 PATIENT WILL BE DISCHARGED TO [facility] ROOM 111 BED 3. PCS FAXED TO [facility] [phone]. ADRIÁN CHAN MADE AWARE. Addendum: 09/27/16 at 1505 by Simin Shah SS I SPOKE WITH PT'S MOTHER, DOROTA AND MADE HER AWARE OF THE ABOVE INFORMATION.
[2016-09-27] MEDS ORDERED: LEVOFLOXACIN 5100 ML IV (14:49)
[2016-09-27] MEDS ORDERED: CLINDAMYCI600 MG/50 IV (14:49)
[2016-09-27 16:00] VITALS: BP 159/75
--- NOTE | 2016-09-27 17:00 | NUR ---
REPORT GIVEN TO NURSE ARREOLA AT [facility]. PT IS GOING TO ROOM 111-B. PT'S MOTHER DOROTA INFORMED OF WHERE PT WILL BE TRANSFERRED. ALL QUESTIONS ANSWERED. Addendum: 09/27/16 at 1842 by Mary Leach RN NOT MAXWELL. NURSE REA RUBY.
--- NOTE | 2016-09-27 17:50 | NUR ---
PT IS PICKED UP BY [facility] IN STABLE CONDITION. IV HEPLOCKED. MENDOZA CATHETER REMOVED.
--- NOTE | 2016-09-28 14:44 | NUR ---
* ST D/C NOTE * Skilled LIME KILN OPERATOR services no longer recommended at this time secondary to pt being DCed to SNF. No further ST follow up recommended at this time.
== END 2016-09-27 17:50 | DRG 177 ==
LOC: MED 09:10 → MTU 12:26
PROVIDERS: ADMIT Student in an Organized Health Care Education/Training Program; ATTEND Student in an Organized Health Care Education/Training Program
DX: J69.0 Pneumonitis due to inhalation of food and vomit (principal); R53.2 Functional quadriplegia; N17.0 Acute kidney failure with tubular necrosis; E44.0 Moderate protein-calorie malnutrition; E87.0 Hyperosmolality and hypernatremia; N39.0 Urinary tract infection, site not specified; N18.4 Chronic kidney disease, stage 4 (severe); E83.52 Hypercalcemia; G80.9 Cerebral palsy, unspecified; F79 Unspecified intellectual disabilities; E03.9 Hypothyroidism, unspecified; D64.9 Anemia, unspecified; M19.90 Unspecified osteoarthritis, unspecified site; K21.9 Gastro-esophageal reflux disease without esophagitis; H91.90 Unspecified hearing loss, unspecified ear; M41.9 Scoliosis, unspecified; G40.909 Epilepsy, unspecified, not intractable, without status epilepticus; I34.1 Nonrheumatic mitral (valve) prolapse; E83.41 Hypermagnesemia; E83.39 Other disorders of phosphorus metabolism; K46.9 Unspecified abdominal hernia without obstruction or gangrene; E83.51 Hypocalcemia; I50.9 Heart failure, unspecified; K52.9 Noninfective gastroenteritis and colitis, unspecified; J44.9 Chronic obstructive pulmonary disease, unspecified; R13.10 Dysphagia, unspecified; Z68.26 Body mass index [BMI] 26.0-26.9, adult; Z85.3 Personal history of malignant neoplasm of breast; Z90.12 Acquired absence of left breast and nipple; Z79.2 Long term (current) use of antibiotics; Z79.899 Other long term (current) drug therapy; Z90.49 Acquired absence of other specified parts of digestive tract; Z22.322 Carrier or suspected carrier of Methicillin resistant Staphylococcus aureus; Q24.9 Congenital malformation of heart, unspecified

== ENCOUNTER 2016-10-22 10:27 | Inpatient (IN) | payer OTHER, MEDICAID ==
[~2016-10-22] VITALS: Ht 152.4 cm; Wt 64.4 kg
[~2016-10-22 10:27] MED LIST changes: +APLICARE ANTIS118 M2 TP; +BACTROBAN 2%20 MG/GM TP; +BENZTROPINE PO; +CLINDAMYCI600 MG/50 IV; +CLINDAMYCIN150 MG PO; +IMODIUM2 MG PO; +LACTULOSE10 GM/152 PO; +LEVOFLOXACIN 5100 ML IV; +LEVOFLOXACIN500 MG PO; +LOTRIMIN 1%30 GM TP; +NACL IV; +RANITIDINE HCL150 M2 PO; +ROBAFEN DM 10120 ML PO; +SYNTHROID0.05 MG PO; +THERA-M W/MINER1 TAB PO
[2016-10-22 10:44] VITALS: BP 130/77
--- NOTE | 2016-10-22 10:45 | NUR ---
PATIENT ADRIANA FROM [facility] PRESENTS TO ED WITH C/O SOB AND DECREASED LEVEL OF CONCIOUSNESS PER STAFF. 100% NRB PER INSPECTOR FINAL ASSEMBLY CONVEYOR LINE POX 100%. PARAPLEGIC,LT. MASTECTOMY,CEREBRAL PALSY,GERD,HYPOTHYDOIDSM. DENIES N/V/D; SKIN IS PINK/WARM/DRY; AAOX4 WITH EVEN AND STEADY GAIT; LUNGS CLEAR BL; HR EVEN AND REGULAR; PT DENIES ANY FEVER, CP, SOB, OR COUGH AT THIS TIME; PATIENT STATES PAIN OF 0/10 AT THIS TIME; VSS; PATIENT POSITIONED FOR COMFORT; HOB ELEVATED; BEDRAILS UP X2; BED DOWN. ER MD MADE AWARE OF PT STATUS.
[2016-10-22] MEDS ORDERED: ROBAFEN100 MG/5 M PO (11:56)
[2016-10-22] MEDS ORDERED: CRESTOR10 MG PO (11:56)
--- NOTE | 2016-10-22 12:02 | NUR ---
PT TAKEN OFF THE UNIT VIA GURNEY FOR CT OF THE HEAD BY LIGIA KRISHNAN
[2016-10-22] MEDS ORDERED: AZITHROMYCIN 500 MG in DEXTROSE 5% 250 ML IV ONE (13:20)
[2016-10-22] MEDS ORDERED: DOCUSATE SODIUM 100 MG GELCAP PO PRN (13:25)
[2016-10-22] MEDS ORDERED: MORPHINE SULFATE 2 MG/ML SYR IVP PRN (13:25)
[2016-10-22] MEDS ORDERED: HYDROcodone/APAP 7.5/325 MG 1 TAB PO PRN (13:25)
[2016-10-22] MEDS ORDERED: ACETAMINOPHEN 325 MG TAB PO PRN (13:25)
[2016-10-22] MEDS ORDERED: cefTRIAXone 1,000 MG VIAL ONE (13:41)
[2016-10-22] MEDS ORDERED: AZITHROMYCIN 500 MG INJ VIAL IV ONE (13:41)
[2016-10-22] MEDS ORDERED: guaiFENesin 20 MG/ML UDC PO PRN (13:45)
[2016-10-22] MEDS ORDERED: CLOTRIMAZOLE 1% 30 GM CRM TUBE TP PRN (13:45)
[2016-10-22] MEDS ORDERED: BISACODYL 10 MG SUPP RC PRN (13:45)
[2016-10-22] MEDS ORDERED: PIPER/TAZO 2.25GM/D5W PREMIX 50 ML IV SCH (13:47)
--- NOTE | 2016-10-22 13:54 | NUR ---
PATIENT REMAINS IN ED VERIFIED BY SHANDA/ED CHAIR MAKER
--- NOTE | 2016-10-22 13:56 | NUR ---
RN DIRECTOR OF DISTANCE LEARNING NOTIFIED FOR NEED OF BEAR HUGER BY ADRIÁN MCCAULEY PT ON 3 LAYERS OF WARM BLANKET
[2016-10-22] MEDS ORDERED: SODIUM POLYSTYRENE 15 GM/60 ML UDBTL PO SCH (14:00)
--- NOTE | 2016-10-22 14:18 | NUR ---
DR. POLO PIERRE (RES) UNAVAILABLE REVIEWED ABG REPORT WITH DR. PENG WEBB (RES)
--- NOTE | 2016-10-22 14:21 | NUR ---
RECTAL TEMP 90.9 TAKEN BY ADRIÁN MCCAULEY; SANDRA MCGREGOR APPLIED BY ADRIÁN MCCAULEY
--- NOTE | 2016-10-22 14:23 | NUR ---
RN JENARO UNAVAILABLE FOR REPORT AT THIS TIME WILL CALL BACK IN 15 MINUTES
--- NOTE | 2016-10-22 14:45 | NUR ---
Patient will be admitted to care of DR CAPPS. Admited to TELE. Will go to room 106B. Belongings list completed. Report to ADRIÁN EASON.
[2016-10-22 15:00] VITALS: BP 113/57
--- NOTE | 2016-10-22 15:00 | NUR ---
PT TO BED 107A FROM ER, REPORT RECEIVED, PT LETHARGIC, OPENS EYES TO TOUCH, NON VERBAL BASELINE PER REPORT, IV TO RIGHT WRIST, MENDOZA IN PLACE DRAINING LIGHT YELLOW URINE, PT ON BEAR HUGGER WARMER FOR HYPOTHERMIA, TEMP 90.7 RECTALLY NOW, O2 SAT 88 ON ROOM AIR, PLACED ON 4L NC, SAT IMPROVED TO 95%, SKIN DRY COOL, SLIGHTLY PALE, SACRAL REDNESS WITHOUT OPEN SKIN, HEALING ABRASIONS TO RIGHT CHEEK, BILAT WRISTS, LEFT UPPER THIGH, LFT LOWER LEG, RIGHT HIP, BRUISING TO BACK OF LEFT THIGH NOTED, PICTURES TAKEN, INITIAL ASSESSMENT COMPLETED AND DOCUMENTED BY YOHANA SAMPSON. CALL LOVE WITHIN REACH, BED LOCKED IN LOW POSITION, SIDE RAILS UP X2, NO FAMILY AT BEDSIDE AT THIS TIME, WILL CONTINUE TO MONITOR.
[2016-10-22] MEDS: ALBUTEROL SULFATE/IPRATROPIU 3 ML SOL IH PRN (15:52)
--- NOTE | 2016-10-22 16:30 | NUR ---
SMALL STOOL NOTED, PERICARE DONE, PT REMAINS ON NC 4L, SAT 98%, SLEEPING QUIETLY IN NAD, SKIN COLOR WNL, ZITHROMAX CONTINUE TO INFUSE TO RIGHT WRIST IV, SITE CLEAR, WILL CONTINUE TO MONITOR.
[2016-10-22] MEDS: NACL 0.9% 1,000 ML IV SCH (16:42)
--- NOTE | 2016-10-22 17:15 | NUR ---
ATTEMPTED SMALL AMOUNT OF CLEAR PO PER DR WEBB IN ORDER FOR KAEXELATE PO, PT REFUSES TO TAKE ANY PO, DR WEBB AWARE OF K LEVEL 5.3
[2016-10-22 17:30] VITALS: BP 86/46
[2016-10-22 17:40] VITALS: BP 78/50
--- NOTE | 2016-10-22 17:40 | NUR ---
REPEAT RECTAL TEMP 91.8, BP DECREASED TO 86/46, 78/50, DR WEBB AT BEDSIDE FOR EVAL, PT OPENS EYES TO TOUCH, SKIN COLOR WNL, O2 SAT 98% 4LNC, ORDER RECEIVED FOR 500ML BOLUS THEN RECHECK BP AND NOTIFY NIGHT ONCALL RESIDENT.
[2016-10-22] MEDS ORDERED: NACL 0.9% 500 ML IV SCH (17:45)
[2016-10-22] MEDS: PIPER/TAZO 2.25GM/D5W PREMIX 50 ML IV SCH (18:17)
--- NOTE | 2016-10-22 18:31 | NUR ---
24G PIV AT WRIST LEAKING, NEW 22G STARTED BY VERONIKA SAMPSON TO RIGHT FA, BOLUS ONGOING ANTIBIOTIC INFUSING, SITE CLEAR, WILL CONTINEU TO MONITOR
[2016-10-22] MEDS: ALBUTEROL SULFATE/IPRATROPIU 3 ML SOL IH SCH (19:05)
--- NOTE | 2016-10-22 19:46 | NUR ---
REPORT GIVEN TO ASSISTANT HEALTH EDUCATOR, PT CARE ENDORSED TO YANCY AT THIS TIME.
--- NOTE | 2016-10-22 19:47 | NUR ---
RECEIVED PT FROM [facility] DAY SHIFT NURSE PT NONVERBAL LETHARGIC on 02 2 lts via nc iv on rt fa infusing well already end first bolus ns , on telemetry sr not sob noted at this time 02 sat 95% temp 97.1 will be close monitoring and health concierge will be call to notify pt condition
[2016-10-22 20:00] VITALS: BP 82/45
[2016-10-22] MEDS ORDERED: NACL 0.9% 500 ML IV ONE (20:50)
--- NOTE | 2016-10-22 20:51 | NUR ---
DR LAWSON HOSPICE MANAGER WAS NOTIFY PT CONDITION AND ORDER SECOND BOLUS NS AND WILL BE GIVEN NOW
[2016-10-22] MEDS: SIMVASTATIN 20 MG TAB PO SCH (20:58)
--- NOTE | 2016-10-22 22:00 | NUR ---
BP 93/55 02 97% HR 85 RESP THERAPY IS HERE ASSISTING THE PT SUGGEST PT ON BIPAP AND DR LAWSON WAS CALLED TO NOTIFY PT CONDITION AND HE WILL ORDER BIPAP NOW AND SECOND BOLUS END. RIGH NOW
--- NOTE | 2016-10-22 22:33 | NUR ---
2225 PLACED PT ON BIPAP. PT NON RESPONSIVE. SETTINGS IPAP12 EPAP 6 FIO2 40% RR14. WILL MONITOR PT
--- NOTE | 2016-10-22 22:43 | NUR ---
PT ON BIPAP 02 SAT 97% SR ON TELEMETRY HR 88 BP 98/58 PT LETHARGIC RESPONDING ONLY TO LIGHT PAIN STIMULUS MENDOZA CATH DRAINING WELL YELLOW URINE
[2016-10-23] VITALS (8 sets, daily range): BP systolic 80–123; BP diastolic 45–75
[2016-10-23] MEDS: PIPER/TAZO 2.25GM/D5W PREMIX 50 ML IV SCH ×4 (00:10→17:10)
[2016-10-23] MEDS ORDERED: NACL 0.9% 500 ML IV ONE (00:30)
--- NOTE | 2016-10-23 00:30 | NUR ---
PT BP LOW 80/45 DR LAWSON WAS NOTIFY AND ORDER ANOTHER BOLUS NS THAT WILL BE GIVEN PT SAME CONDITION LETHARGIC NONVERBAL ON BIPAP
[2016-10-23] MEDS: ALBUTEROL SULFATE/IPRATROPIU 3 ML SOL IH SCH ×4 (00:45→18:50)
--- NOTE | 2016-10-23 02:43 | NUR ---
PT ON BIPAP LETHARGIC AFTER THIRD NS BOLUS GIVEN HR 96 BP 92/49 02 SAT 98%
[2016-10-23] MEDS: NACL 0.9% 1,000 ML IV SCH ×3 (02:50→22:07)
[2016-10-23] MEDS: LEVOTHYROXINE 0.05 MG TAB PO SCH (05:28)
--- NOTE | 2016-10-23 05:37 | NUR ---
PT REPOSITIONED Q2H ON BIPAP NOT SOB NOTED , ON TELEMETRY SR ON CLOSE MONITORIUNG NOT FEVER
--- NOTE | 2016-10-23 06:28 | NUR ---
REC'D PT ON DAJUAN V60 BIPAP SETTINGS / RR 14 FIO2 40% ALARMS ON AND FUNCTIONING PROPLERY, AMBU BAG AT SIDE OF BIPAP AND BIPAP IS PLUGGED INTO RED OUTLET, I\L TX GIVEN WITH DUONEB 3ML WITHOUT ADVERSE REACTION POST TX B\S ARE CLEAR BILATERALLY, PT IS WEARING MED FACE MASK WITH PROTETIC GEL IN PLACE AND SKIN INTEGRITY INTACT PT IS RESTING WITH NO SIGNS OF DISTRESS NOTED AT THIS TIME
--- NOTE | 2016-10-23 06:57 | NUR ---
REPORT GIVEN TO SINAN SAMPSON FOR CONTINUITY OF CARE
[2016-10-23] MEDS ORDERED: SODIUM POLYSTYRENE 15 GM/60 ML UDBTL PO ONE (07:30)
--- NOTE | 2016-10-23 07:30 | NUR ---
REPORT RECEIVED FROM SPOOL SALVAGER, PT RESTING WITH EYES CLOSED, RESP EVEN UNLABORED ON BIPAP, SKIN WARM DRY COLOR WNL, IVF INFUSING WELL TO RIGTH FA, SITE CLEAR, MENDOZA DRAINING YELLOW URINE, SCD IN PLACE, OPENS EYES TO CARE, CALL LOVE WITHIN REACH, SIDE RAILS UP X2, BED LOCKED IN LOW POSITION, PLAN OF CARE REVIEWED, NO FAMILY AT BEDSIDE, PT VISIBLE FROM NURSES STATION, WILL CONTINUE TO MONITOR Addendum: 10/23/16 at 0757 by Arely Jorgensen RN REPORT RECEIVED FROM SPOOL SALVAGER, PT RESTING WITH EYES CLOSED, RESP EVEN UNLABORED ON BIPAP, SKIN WARM DRY COLOR WNL, IVF INFUSING WELL TO RIGTH FA, SITE CLEAR, MENDOZA DRAINING YELLOW URINE, SCD IN PLACE, OPENS EYES TO CARE, CALL LOVE WITHIN REACH, SIDE RAILS UP X2, BED LOCKED IN LOW POSITION, PLAN OF CARE REVIEWED, NO FAMILY AT BEDSIDE, PT VISIBLE FROM NURSES STATION, PT ON TELE AND CONTINUEOUS PULSE OX, WILL CONTINUE TO MONITOR.
[2016-10-23] MEDS ORDERED: SODIUM POLYSTYRENE 15 GM/60 ML UDBTL PR SCH ×2 (07:33→16:30)
[2016-10-23] MEDS: CALCIUM ACETATE 667 MG TAB PO SCH ×3 (08:00→16:42)
[2016-10-23] MEDS: SODIUM POLYSTYRENE 15 GM/60 ML UDBTL PR SCH ×2 (08:00→10:40)
[2016-10-23] MEDS ORDERED: MULTIVITAMIN/MINERALS 1 TAB PO SCH (09:00)
[2016-10-23] MEDS ORDERED: NON-FORMULARY ITEM (Rosuvastatin Calcium* (Crestor*) 1 TAB) PO SCH (09:00)
[2016-10-23] MEDS: FAMOTIDINE 20 MG TAB PO SCH (09:00)
[2016-10-23] MEDS: DOCUSATE SODIUM 100 MG GELCAP PO SCH ×2 (09:00→20:18)
[2016-10-23] MEDS ORDERED: MULTIVIT TH IRON OTHER MIN PO SCH (09:00)
[2016-10-23] MEDS ORDERED: NON-FORMULARY ITEM (Ranitidine HCl (Ranitidine Hcl) 150 MG) PO SCH (09:00)
--- NOTE | 2016-10-23 09:10 | NUR ---
BIPAP CHECK, PT IS RESTING WITH NO SIGNS OF DISTRESS NOTED AT THIS TIME
[2016-10-23] MEDS: PANTOPRAZOLE 40 MG INJ VIAL IVP SCH (09:43)
--- NOTE | 2016-10-23 09:45 | NUR ---
PT REMAINS LETHARGIC, PULLS AWAY FROM LIGHT PAIN, ATTEMPTS TO REACH FOR BIPAP MASK, BUT RETURN IMMEDIATELY BACK TO SLEEP, PT DOES NOT AROUSE ENOUGH FOR PO MEDS, WILL NOTIFY , PT TURNED, REPOSITIONED AT THIS TIME.
--- NOTE | 2016-10-23 09:46 | NUR ---
PATIENT HAS BEEN SCREENED AND CATEGORIZED HIGH NUTRITION RISK. PATIENT WILL BE SEEN WITHIN 1-2 DAYS OF ADMISSION. 10/22/16-10/23/[address]
--- NOTE | 2016-10-23 10:02 | NUR ---
ATTEMPTED TO CONTACT PT'S FAMILY TO NOTIFY THEM OF PT'S ADMISSION, LEFT MESSAGE AT [phone] FOR PARENTS MARLEY AND DOROTA FAJARDO PER FACE SHEET.
[2016-10-23] MEDS ORDERED: methylPREDNISolone SS 125 MG/2 ML VIAL IVP SCH (10:26)
--- NOTE | 2016-10-23 10:30 | NUR ---
PT SLIGHTLY MORE ALERT NOW, ATTEMPTING TO PULL IV AND REMOVE BIPAP MASK, MITTEN PLACED, IV WRAPPED, AR KAYEXALATE GIVEN AT THIS TIME, DR CAPPS MADE AWARE.
--- NOTE | 2016-10-23 11:12 | NUR ---
BIPAP CHECK, PT IS SLEEPING WITH NO SIGNS OF DISTRESS NOTED AT THIS TIME
[2016-10-23] MEDS ORDERED: FOLIC ACID 1 MG TAB PO SCH (11:32)
--- NOTE | 2016-10-23 11:57 | NUR ---
10/23/16 RD INITIAL ASSESSMENT COMPLETED PLEASE REFER TO NUTRITION ASSESSMENT UNDER CARE ACTIVITY FOR ESTIMATED NUTRITIONAL NEEDS. 1. WHEN MEDICALLY FEASIBLE, RECOMMEND RAIL SPLITTER REFERRAL FOR SWALLOW EVALUATION 2. WHEN MEDICALLY FEASIBLE, INITIATE PO DIET: RENAL DIET WITH TEXTURE PER RAIL SPLITTER RECOMMENDATIONS 3. RECOMMEND FOLIC ACID + VITAMIN B12 SUPPLEMENT 1X/DAILY 4. RD TO FOLLOW-UP 2-3 DAYS; HIGH RISK DORI PATEL, RD
--- NOTE | 2016-10-23 12:51 | NUR ---
BIPAP CHECK, I\L TX GIVEN WITH DUONEB 3ML WITH NO ADVERSE REACTION POST TX, B\S ARE CLEAR BILATERALLY, AND PT IS SLEEPING WITH NO SIGNS OF DISTRESS NOTED AT THIS TIME
--- NOTE | 2016-10-23 13:00 | NUR ---
22G IV ON R FA PULLED OUT, BLEEDING CONTROLLED, CATH TIP INTACT, 22G STARTED TO RIGHT LOWE EXT, OK BY MD TO USE LOWER EXT FOR IV, PT WITH LARGE BM, PERICARE DONE.
--- NOTE | 2016-10-23 13:19 | NUR ---
PT PULLED BIPAP OFF AND PLACED PT ON 4LNC RN JENARO AT BEDSIDE
--- NOTE | 2016-10-23 14:43 | NUR ---
PT RESTING QUIETLY IN NAD, RESP EVEN UNLABORED ON 4LNC O2 SAT 92%, MITTENS IN PLACE, PT NOT ATTEMPTING TO PULL LINES OR O2, NO RESTRAINT NEEDED AT THIS TIME, PT IN PLAIN VIEW OF NURSES STATION, CARDIAC AND PULSE OX ON GOING, CALL LOVE AT BEDSIDE, BED LOCKED IN LOW POSITION, SIDE RAILS UP X2, WILL CONTINUE TO MONITOR.
[2016-10-23] MEDS ORDERED: CYANOCOBALAMIN 100 MCG TAB PO SCH (15:55)
--- NOTE | 2016-10-23 17:00 | NUR ---
LAB AT BEDSIDE FOR BLOOD DRAW, PT MARIANA MORE
--- NOTE | 2016-10-23 18:16 | NUR ---
LARGE BM X1, PERICARE DONE, POSITION CHANGED, PT REMAINS ON 4L O2 VIA NC, O2 SAT 97%, RESP EVEN UNLABORED, PT WITH EYES OPEN, PULLS AWAY WITH CARE AND TOUCH, MITTENS IN PLACE, TOLERATING IV IN R LEG, SITE CLEAR, PT UNABLE TO REACH TO PULL IT OUT, PT MARIANA NC WELL WITHOUT PULLING IT AWAY, NO NEED FOR RESTRAINTS AT THIS TIME, PT REMAINS ON GOLF COURSE LABORER AND PULSE OX, CALL LOVE WITHIN REACH, BED LOCKED IN LOW POSITION, SIDE RAILS UP, WILL CONTINUE TO MONITOR.
[2016-10-23] MEDS: BUDESONIDE 0.5 MG/2 ML NEBU INH SCH (18:51)
--- NOTE | 2016-10-23 18:57 | NUR ---
RCV'D PT ON 4 L NC. BIPAP AT BEDSIDE PLUGGED INTO RED OUTLET. PT SAT IS 93% HR 75. HHN TX GIVEN. BS CLEAR. NO SOB OR DISTRESS NOTED AT THIS TIME. PT IS A SLEEP. WILL CONTINUE TO MONITOR.
--- NOTE | 2016-10-23 19:20 | NUR ---
REPORT GIVEN TO LAB TESTER, PT IN STABLE CONDITION.
--- NOTE | 2016-10-23 19:21 | NUR ---
RECEIVED REPORT FROM DAY RN FOR CONTINUITY OF CARE. PATIENT IS NON VERBAL, OPENS EYES TO LIGHT PAIN AND SHAKING. PT UNABLE TO VERBALIZE UNDERSTANDING OF PLAN OF CARE. SHIFT ASSESSMENT DONE, VS TAKEN, STABLE AT THIS TIME. NO S/S OF RESPIRATORY DISTRESS NOTE ON 4L NC. FLACC-0. IV TO RT LEG 22 GAUGE PATENT AND INFUSING FLUIDS WELL. MENDOZA CATHETER IN PLACE DRAINING CLEAR YELLOW URINE TO GRAVITY. PATIENT HAS MULTIPLE ABRASIONS AND BRUISING THROUGHOUT BODY, SACRAL REDNESS NOTED. SAFETY/ FALL PRECAUTIONS ENFORCED. WILL CONTINUE TO MONITOR.
[2016-10-23] MEDS: SIMVASTATIN 20 MG TAB PO SCH (20:18)
--- NOTE | 2016-10-23 21:18 | NUR ---
HELD MEDICATIONS DUE TO PT NPO AND PENDING SWALLOW EVAL. TURNED AND REPOSITIONED, TOLERATED WELL. PT DROOLING, USED YANKAUER SUCTION, O2 SAT AT 98%, AND HR 68. WILL CONTINUE TO MONITOR.
[2016-10-24] VITALS: BP 105/67
--- NOTE | 2016-10-24 | NUR ---
VS TAKEN, STABLE. TURNED AND REPOSITIONED PATIENT. WILL CONTINUE TO MONITOR.
[2016-10-24] MEDS: ALBUTEROL SULFATE/IPRATROPIU 3 ML SOL IH SCH ×4 (00:18→19:23)
[2016-10-24] MEDS: PIPER/TAZO 2.25GM/D5W PREMIX 50 ML IV SCH ×4 (01:07→17:45)
--- NOTE | 2016-10-24 02:05 | NUR ---
TURNED AND REPOSITIONED PATIENT. O2 SAT AT 98%, HR 75, FLACC-0. PROVIDED ORAL CARE. WILL CONTINUE TO MONITOR.
[2016-10-24 04:00] VITALS: BP 105/69
--- NOTE | 2016-10-24 04:02 | NUR ---
TURNED AND REPOSITIONED PATIENT. VS TAKEN, STABLE. PROVIDED ORAL CARE AND AM CARE. WILL CONTINUE TO MONITOR.
[2016-10-24] MEDS: LEVOTHYROXINE 0.05 MG TAB PO SCH (05:38)
--- NOTE | 2016-10-24 06:05 | NUR ---
PT RESTING IN BED. NO S/S OF DISTRESS OR DISCOMFORT NOTED. INFORMED RT OF INDUCED SPUTUM TO BE COLLECTED.
[2016-10-24] MEDS: BUDESONIDE 0.5 MG/2 ML NEBU INH SCH ×2 (07:06→19:23)
--- NOTE | 2016-10-24 07:07 | NUR ---
RECEIVED PT OFF BIPAP ON 4 L N\C DECREASED TO 3L N/C POST HHNS SPO2 [address]
[2016-10-24] MEDS ORDERED: NACL 0.45% 1,000 ML IV SCH (07:20)
--- NOTE | 2016-10-24 07:24 | NUR ---
RECEIVED PT IN BED. AWAKE. ALERT, ORIENTEDX1. NO SOB NOTED. RT AT BEDSIDE GIVING BREATHING TREATMENT. NO SIGNS AND SYMPTOMS OF ACUTE DISTRESS NOTED. POSITIVE BOWEL SOUNDS NOTED ON FOUR QUADRANTS. PT ON MENDOZA CATHETER, INTACT, DRAINING CLEAR YELLOW URINE. PT BEDBOUND. OFF BONY PROMINENCE. SAFETY PRECAUTION IN PLACE. CALL LIGHT WITHIN REACH.
--- NOTE | 2016-10-24 07:25 | NUR ---
ENDORSED PATIENT TO DAY RN FOR CONTINUITY OF CARE, PATIENT IS IN STABLE CONDITION.
[2016-10-24 08:00] VITALS: BP 128/67
[2016-10-24] MEDS: CALCIUM ACETATE 667 MG TAB PO SCH ×3 (08:00→17:00)
[2016-10-24] MEDS: DOCUSATE SODIUM 100 MG GELCAP PO SCH ×2 (09:00→20:11)
[2016-10-24] MEDS: MULTIVITAMIN 1 TAB PO SCH (09:00)
[2016-10-24] MEDS: CYANOCOBALAMIN 100 MCG TAB PO SCH (09:00)
[2016-10-24] MEDS: FOLIC ACID 1 MG TAB PO SCH (09:00)
[2016-10-24] MEDS: FAMOTIDINE 20 MG TAB PO SCH (09:00)
--- NOTE | 2016-10-24 09:15 | NUR ---
MARCIA CAME TO SEE PT FOR SWALLOW EVALUATION. PT WILL BE MAINTAINED NPO FOR NOW, DUE TO SWALLOW DIFFICULTY RISK FOR ASPIRATION. PT NOT TOLERATING ANYTHING BY MOUTH AT THIS TIME.
[2016-10-24] MEDS: PANTOPRAZOLE 40 MG INJ VIAL IVP SCH (09:28)
[2016-10-24] MEDS: NACL 0.45% 1,000 ML IV SCH ×2 (09:45→17:52)
--- NOTE | 2016-10-24 09:56 | NUR ---
WHEAT SHIPPER note (bedside swallow evaluation completed) [phone]. Bedside swallow evaluation completed, please see report for details. WHEAT SHIPPER provided pt with education regarding purpose of evaluation and rationale for recommendations; however, pt unable to benefit from education provided. Recommend: 1) STRICT NPO (careful oral cares only) 2) consider alternative method(s) of nutrition/hydration/medication vs comfort measures, as appropriate 3) nursing to provide pt with frequent oral cares during NPO status to improve pt's oral hygiene/comfort, as appropriate 4) WHEAT SHIPPER to f/u for continued assessment of pt's ability to take PO safely 1-2 x week x 2 weeks as pt willing/able to participate safely, as appropriate. G-codes: [id number] [facility] NOMS level 1. PVE for d/w RN (Samantha) prior to and following evaluation completion.
[2016-10-24 12:00] VITALS: BP 109/71
--- NOTE | 2016-10-24 13:14 | NUR ---
DR TEMPLETON CAME TO SEE PT AND TRIED CALLING THE FAMILY OF PT TO OBTAIN CONSENT BUT WITH NO RESPONSE.
--- NOTE | 2016-10-24 13:17 | NUR ---
TRIED CALLING FAMILY KARLGEOFF TO FOLLOW UP AT [phone]. NO ANSWER. LEFT MESSAGE VIA VOICE MAILBOX.
[2016-10-24 16:00] VITALS: BP 95/60
--- NOTE | 2016-10-24 17:45 | NUR ---
ASSESSED PT DUE TO HR 40. PT ASLEEP. AROUSABLE TO VOICE. PT VITALS SIGNS STABLE. NO SIGNS AND SYMPTOMS OF ACUTE DISTRESS NOTED. AT THIS TIME. WILL CONTINUE TO MONITOR
--- NOTE | 2016-10-24 18:27 | NUR ---
HR CHECKED AT 61BPM. NO SIGNS OF SOB NOTED. NO SIGNS AND SYMPTOMS OF ACUTE PAIN OR DISCOMFORT NOTED AT THIS TIME. PT ASLEEP ON 02 AT 4LPM NC. AROUSABLE TO VOICE.
--- NOTE | 2016-10-24 19:33 | NUR ---
PT ENDORSED ON NEXT SHIFT. BREATHING TREATMENT GIVEN BY RT. SLIGHT HEMATURIA, SMALL AMOUNT, NOTED ON URINARY BAG WITH 10 CC HEMATURIA OUTPUT AT THIS TIME. NO SIGNS AND SYMPTOMS OF ACUTE DISTRESS NOTED. WILL ENDORSE TO MONITOR URINARY DRAINAGE. AND TO NOTIFY IDENTIFICATION PRINTING MACHINE SETTER FOR FURTHER BLEEDING NOTED.
--- NOTE | 2016-10-24 19:34 | NUR ---
RECEIVED REPORT FROM DAY RN FOR CONTINUITY OF CARE. PATIENT IS ALERT AND ORIENTED TO SELF, NON VERBAL, OPENS EYES TO LIGHT PAIN, PT UNABLE TO VERBALIZE UNDERSTANDING OF PLAN OF CARE. SHIFT ASSESSMENT DONE, VS TAKEN, STABLE AT THIS TIME. NO S/S OF RESPIRATORY DISTRESS NOTE ON 4L NC. FLACC-0. IV TO RT LEG 22 GAUGE PATENT AND INFUSING FLUIDS WELL. MENDOZA CATHETER IN PLACE DRAINING BLOOD TINGED URINE. INFORMED DAY CHARGE NURSE OF OUTPUT. PATIENT HAS MULTIPLE ABRASIONS AND BRUISING THROUGHOUT BODY AND SACRAL REDNESS NOTED. SAFETY/ FALL PRECAUTIONS ENFORCED. WILL CONTINUE TO MONITOR.
[2016-10-24 20:00] VITALS: BP 120/72
[2016-10-24] MEDS: SIMVASTATIN 20 MG TAB PO SCH (20:11)
--- NOTE | 2016-10-24 20:34 | NUR ---
HELD DUE MEDICATIONS PER PT NPO. TURNED AND REPOSITIONED PATIENT. PT PULLING OFF NASAL CANNULA, REAPPLIED O2 SAT BETWEEN 92-98%. WILL CONTINUE TO MONITOR.
--- NOTE | 2016-10-24 21:00 | NUR ---
SPOKE WITH DR. LAWSON REGARDING PT MENDOZA CATHETER DRAINING BLOOD TINGED URINE AND LEAKING. WILL FOLLOW OUT NEW ORDERS GIVEN.
--- NOTE | 2016-10-24 22:00 | NUR ---
TURNED AND REPOSITIONED PATIENT, MODERATE FORMED BM, CLEANED AND MADE COMFORTABLE. WILL CONTINUE TO MONITOR.
--- NOTE | 2016-10-24 23:42 | NUR ---
VS TAKEN, STABLE. PT REMOVING NASAL CANNULA, CURRENTLY ON ROOM AIR WITH O2 SAT >93% NO S/S OF DISTRESS NOTED. WILL CONTINUE TO MONITOR.
[2016-10-25] VITALS: BP 110/51
[2016-10-25] MEDS: PIPER/TAZO 2.25GM/D5W PREMIX 50 ML IV SCH ×5 (00:58→23:18)
[2016-10-25] MEDS: ALBUTEROL SULFATE/IPRATROPIU 3 ML SOL IH SCH ×4 (01:45→19:21)
--- NOTE | 2016-10-25 01:49 | NUR ---
TURNED AND REPOSITIONED PATIENT, TOLERATED WELL. NO S/S OF RESPIRATORY DISTRESS NOTED AT THIS TIME. WILL CONTINUE TO MONITOR.
[2016-10-25] MEDS: NACL 0.45% 1,000 ML IV SCH ×2 (03:25→16:54)
[2016-10-25 04:00] VITALS: BP 133/80
--- NOTE | 2016-10-25 04:00 | NUR ---
TURNED AND REPOSITIONED PATIENT, PT HAD BM, CLEANED AND MADE COMFORTABLE. VS TAKEN, STABLE. WILL CONTINUE TO MONITOR.
[2016-10-25] MEDS: LEVOTHYROXINE 0.05 MG TAB PO SCH (05:31)
--- NOTE | 2016-10-25 06:10 | NUR ---
BLADDER SCAN PERFORMED, 50 ML NOTED WITH NO DISTENSION. WILL CONTINUE TO MONITOR.
[2016-10-25] MEDS: BUDESONIDE 0.5 MG/2 ML NEBU INH SCH ×2 (07:12→19:20)
--- NOTE | 2016-10-25 07:25 | NUR ---
RECEIVED PT IN BED, AWAKE. ALERT, ORIENTED X1. NO SOB NOTED. PT ON ROOM AIR SATING AT 97%. RT AT BEDSIDE. NO SIGNS AND SYMPTOMS OF ACUTE PAIN OR DISCOMFORT NOTED AT THIS TIME. POSITIVE BOWEL SOUNDS NOTED ON FOUR QUADRANTS. PT BEDBOUND. OFF BONY PROMINENCE. MENDOZA CATHETER IN PLACE. DRAINING CLEAR YELLOW URINE. SAFETY PRECAUTION IN PLACE. CALL LIGHT WITHIN REACH.
--- NOTE | 2016-10-25 07:26 | NUR ---
RCV'D PT ON RA WITH SPO2 OF 96% PT IS AWAKE WITH NO SOB OR DISTRESS. BIPAP AT BEDSIDE FOR DISTRESS. AMBU BAG AT BEDSIDE. NOTICED HR DROPS TO LOW 40'S RN TRINO AWARE. BOTH HHN TX GIVEN. PT KEPT TAKING OFF MASK SO I HELD IT NEXT TO HER FACE. PT NOW IS CALM AND SLEEPY. WILL CONTINUE TO MONITOR.
--- NOTE | 2016-10-25 07:30 | NUR ---
ENDORSED PATIENT TO DAY RN FOR CONTINUITY OF CARE, PATIENT IS IN STABLE CONDITION.
--- NOTE | 2016-10-25 07:33 | NUR ---
RECEIVED CALL FROM LABS FOR CRITICAL VALUE POTASSIUM. DR. WEBB IN UNIT AND MADE AWARE OF CRITICAL VALUE WITH ORDERS MADE AND CARRIED OUT.
[2016-10-25 08:00] VITALS: BP 121/63
[2016-10-25] MEDS: CALCIUM ACETATE 667 MG TAB PO SCH ×3 (08:00→16:54)
[2016-10-25] MEDS ORDERED: POTASSIUM CHLORIDE 10 MEQ TABER PO SCH (08:00)
[2016-10-25] MEDS ORDERED: POTASSIUM CHLORIDE 40 MEQ, LIDOCAINE 1% 25 MG in NACL 0.9% 250 ML IV SCH (08:30)
--- NOTE | 2016-10-25 08:30 | NUR ---
DR. WEBB MADE AWARE THAT PT ON STRICT NPO AND CAN'T TAKE THE POTASSIUM PO ORDER.
--- NOTE | 2016-10-25 08:31 | NUR ---
CRITICAL LABS OF HGB AND HCT WAS RECEIVED AND DR. WEBB WAS NOTIFIED. WITH ORDERS TO PUT PT ON SALINE LOCK FOR NOW.
[2016-10-25] MEDS: DOCUSATE SODIUM 100 MG GELCAP PO SCH ×2 (08:55→20:01)
[2016-10-25] MEDS: CYANOCOBALAMIN 100 MCG TAB PO SCH (08:56)
[2016-10-25] MEDS: FAMOTIDINE 20 MG TAB PO SCH (08:56)
[2016-10-25] MEDS: MULTIVITAMIN 1 TAB PO SCH (08:56)
[2016-10-25] MEDS: FOLIC ACID 1 MG TAB PO SCH (08:56)
[2016-10-25] MEDS: PANTOPRAZOLE 40 MG INJ VIAL IVP SCH (09:02)
--- NOTE | 2016-10-25 10:45 | NUR ---
CALLED PARENT OF PT, MARLEY FAJARDO/DOROTA [phone]. NO ANSWER, LEFT A MESSAGE VIA VOICE MAILBOX REGARDING PROCEDURE MD WANTS TO PERFORM AND GAVE CALL BACK NUMBER. AWAITING CALL BACK FOR CONSENT.
--- NOTE | 2016-10-25 11:45 | NUR ---
RUEL FROM [facility] CAME TO SEE PT. AND MADE AWARE THAT I WAS TRYING TO GET HOLD OF THE PT'S PARENTS FOR THE CONSENT FOR PEG PLACEMENT. ACCORDING TO RUEL THE PATIENT'S PARENTS ARE OUT OF STATE RIGHT NOW. SHE GAVE ME THE NUMBER OF THE PT'S SISTER ROXI [phone] AND [phone], SHE TRIED CALLING BUT IT WAS OUT OF ORDER. RUEL CALLED THE [employer] SETTER [phone] MADE AWARE OF NEEDED CONSENT. I RECEIVED A CALL FROM KAYLEIGH FROM [facility] AND GATHERED PT'S INFO REGARDING SURGERY. RUEL SAID THAT THE RN FROM [facility] WILL FILL OUT PAPERS FRO CONSENT AND THEN SEND IT TO [facility] THEN WILL FAX IT OVER HERE AT [facility]. GAVE FAX NUMBER OF [facility] TO KAYLEIGH. AWAITING FAX. DR. WEBB MADE AWARE.
[2016-10-25 12:00] VITALS: BP 121/81
--- NOTE | 2016-10-25 12:45 | NUR ---
DR WEBB MADE AWARE OF HEMATURIA NOTED ON MENDOZA CATHETER BAG ( LIGHT RED IN COLOR). SOME URINE LEAKING WAS NOTED ON PT'S BED PAD AND IT WAS YELLOW IN COLOR WITHOUT HEMATURIA. DR. WEBB MADE ORDERS AND CARRIED OUT.
--- NOTE | 2016-10-25 13:21 | NUR ---
RUEL CALLED BACK FROM [facility]. SHE SAID THAT SHE LEFT A MESSAGE TO THE SISTER ROXI, AND GAVE ME A NEW NUMBER. [phone]. WILL FOLLOW UP WITH SISTER.
--- NOTE | 2016-10-25 14:00 | NUR ---
RECEIVED CALL FROM MARLEY FAJARDO (FATHER) REGARDING PT'S PROCEDURE FOR PEG PLACEMENT. FATHER MADE AWARE OF DOCTOR'S PLAN AND PROCEDURE. FATHER VERBALIZED UNDERSTANDING, AND GAVE HIS VERBAL CONSENT. VERIFIED WITH ANOTHER RN (YOHANA SAMPSON) REGARDING VERBAL CONSENT. DR WEBB MADE AWARE VERBAL CONSENT OBTAINED. MARLEY FAJARDO GAVE HIS NUMBER JUST IN CASE HE NEEDS TO BE REACHED [phone], SINCE HE IS OUT OF TOWN ACCORDING TO HIM.
--- NOTE | 2016-10-25 14:35 | NUR ---
TELEPHONE CONSENT FOR EGD WITH PEG TUBE PLACEMENT IN TO CHART. CALLED DR. TEMPLETON'S OFFICE [phone] SPOKE WITH JARRETT, MADE AWARE THAT TELEPHONE CONSENT WAS OBTAINED.
[2016-10-25 16:00] VITALS: BP 126/67
--- NOTE | 2016-10-25 16:24 | NUR ---
RECEIEVED A CALL FROM DR. TEMPLETON AND MADE AWARE THAT TELEPHONE CONSENT FOR SURGERY WAS WITNESSED BY 2 RNS AND SIGNED, AND PUT IN TO CHART
--- NOTE | 2016-10-25 16:27 | NUR ---
LEAKAGE TESTER NOTIFIED CHARGE NURSE FOR PT PEG TUBE PLACEMENT TOMORROW AT 0730.
--- NOTE | 2016-10-25 16:43 | NUR ---
DR. WEBB MADE AWARE OF LATEST LAB RESULT. WITH ORDER TO RESUME IV FLUIDS.
--- NOTE | 2016-10-25 16:44 | NUR ---
DR. WEBB ORDERED MENDOZA CATHETER IRRIGATION FOR HEMATURIA. CARRIED OUT. ORTEGA COLORED URINE NOTED.
--- NOTE | 2016-10-25 19:37 | NUR ---
PT. KEPT CLEAN, DRY AND COMFORTABLE, NEEDS ATTENDED. ENDORSED TO THE NEXT SHIFT FOR CONTINUITY OF CARE. PT ON STABLE CONDITION. NO SOB. NO SIGNS AND SYMPTOMS OF ACUTE PAIN OR DISCOMFORT NOTED AT THIS TIME. PT ON ROOM AIR SATING AT 94%.
--- NOTE | 2016-10-25 19:38 | NUR ---
RECEIVED REPORT FROM DAY RN FOR CONTINUITY OF CARE. PATIENT IS A&OX1, NON VERBAL. PT UNABLE TO VERBALIZE UNDERSTANDING OF PLAN OF CARE. SHIFT ASSESSMENT DONE, VS TAKEN, STABLE AT THIS TIME. NO S/S OF RESPIRATORY DISTRESS NOTED ON ROOM AIR. FLACC-0. IV TO RT LEG 22 GAUGE PATENT AND INFUSING FLUIDS WELL. MENDOZA CATHETER IN PLACE DRAINING BLOOD TINGED URINE, MD AWARE. PATIENT HAS MULTIPLE ABRASIONS ON FACE AND LEGS, BRUISING NOTED BODY AND SACRAL REDNESS. SAFETY/ FALL PRECAUTIONS ENFORCED. WILL CONTINUE TO MONITOR.
[2016-10-25 20:00] VITALS: BP 136/76
--- NOTE | 2016-10-25 20:00 | NUR ---
HELD MEDICATIONS DUE TO PT NPO. TURNED AND REPOSITIONED PATIENT. IRRIGATED MENDOZA CATHETER PER MD ORDER. PROVIDED ORAL CARE AND SUCTION. WILL CONTINUE TO MONITOR.
[2016-10-25] MEDS: SIMVASTATIN 20 MG TAB PO SCH (20:01)
--- NOTE | 2016-10-25 22:00 | NUR ---
TURNED AND REPOSITIONED PATIENT, TOLERATED WELL. FLACC-0, NO S/S OF RESPIRATORY DISTRESS NOTED ON ROOM AIR. WILL CONTINUE TO MONITOR.
--- NOTE | 2016-10-25 23:30 | NUR ---
VS TAKEN, STABLE. PT RESTING IN BED. NO S/S OF DISTRESS OR DISCOMFORT NOTED. WILL CONTINUE TO MONITOR.
[2016-10-26] VITALS: BP 130/95
[2016-10-26] MEDS: ALBUTEROL SULFATE/IPRATROPIU 3 ML SOL IH SCH ×4 (01:02→19:28)
--- NOTE | 2016-10-26 02:10 | NUR ---
TURNED AND REPOSITIONED PATIENT. IRRIGATED MENDOZA CATHETER PER MD ORDER. WILL CONTINUE TO MONITOR.
[2016-10-26 04:00] VITALS: BP 122/66
--- NOTE | 2016-10-26 04:02 | NUR ---
VS TAKEN, STABLE. PT REMOVED MITTENS AND PULLING AT LINES. REAPPLIED AND REPOSITIONED. SAFETY MEASURES ENFORCED. WILL CONTINUE TO MONITOR.
[2016-10-26] MEDS: NACL 0.45% 1,000 ML IV SCH ×2 (04:23→14:42)
[2016-10-26] MEDS: LEVOTHYROXINE 0.05 MG TAB PO SCH (05:07)
[2016-10-26] MEDS: PIPER/TAZO 2.25GM/D5W PREMIX 50 ML IV SCH ×4 (05:08→23:30)
--- NOTE | 2016-10-26 06:00 | NUR ---
TURNED AND REPOSITIONED PATIENT, TOLERATED WELL. ORAL CARE PROVIDED. WILL CONTINUE TO MONITOR.
--- NOTE | 2016-10-26 06:52 | NUR ---
LOC AWAKE MENTALLY CHALLENGED PATIENT REFUSING TO USE/WEAR BIPAP OR SUPPLEMENTAL OXYGEN VIA [facility] [employer] V60 BIPAP TO MASK HHN THERAPY GIVEN VIA BLOWBY
[2016-10-26] MEDS: BUDESONIDE 0.5 MG/2 ML NEBU INH SCH ×2 (06:53→19:29)
[2016-10-26] MEDS ORDERED: fentaNYL 0.05 MG/ML VIAL ONE (07:05)
[2016-10-26] MEDS ORDERED: MIDAZOLAM 2 MG/2 ML VIAL ONE ×2 (07:05)
--- NOTE | 2016-10-26 07:20 | NUR ---
ENDORSED PATIENT TO DAY RN FOR CONTINUITY OF CARE, PATIENT IS IN STABLE CONDITION.
--- NOTE | 2016-10-26 07:25 | NUR ---
RECEIVED REPORT FROM ADRIÁN JAMESON. PT IS RESTING IN BED, PT IS A/OX1, NON-VERBAL, PT HAS A BRUISE ON HER RIGHT UPPER ARM, SMALL SCRATCH ON THE LEFT SIDE OF HER FACE, SACRAL REDNESS, PT HAS A MENDOZA CATHETER IN PLACE, DARK YELLOW URINE WITH SOME BLOOD DRAINING DOWN THE TUBING NOTED, NO S/S OF RESPIRATORY DISTRESS OR DISCOMFORT NOTED, SAFETY/FALL/ASPIRATION PRECAUTIONS ARE IN PLACE, DISCUSSED PLAN OF CARE WITH PT, PT UNABLE TO COMPREHEND, CALL LIGHT IS WITHIN REACH, WILL CONTINUE TO MONITOR.
--- NOTE | 2016-10-26 07:27 | NUR ---
PT OFF UNIT, TAKEN TO OR TO HAVE PEG TUBE PLACEMENT DONE. PT LEFT IN STABLE CONDITION.
[2016-10-26] MEDS: fentaNYL 0.05 MG/ML VIAL IVP ONE ×2 (07:39→07:50)
[2016-10-26] MEDS: MIDAZOLAM 2 MG/2 ML VIAL IVP ONE ×2 (07:49→07:50)
[2016-10-26 08:00] VITALS: BP 108/76
[2016-10-26] MEDS: CALCIUM ACETATE 667 MG TAB PO SCH ×3 (08:00→16:31)
--- NOTE | 2016-10-26 08:20 | NUR ---
PT RETURNED TO UNIT FROM OR, WAS TOLD PT DID NOT HAVE THE PEG TUBE PLACEMENT BECAUSE SHE HAD AN INTRATHORACIC STOMACH AND NEEDED A J-TUBE SURGERY CONSULT, PT RETURNED TO ROOM SLEEPY AND LETHARGIC WITH O2 4L MASK. PT VITAL SIGNS STABLE.
[2016-10-26] MEDS: MULTIVITAMIN 1 TAB PO SCH (09:00)
[2016-10-26] MEDS: DOCUSATE SODIUM 100 MG GELCAP PO SCH ×2 (09:00→20:13)
[2016-10-26] MEDS: FAMOTIDINE 20 MG TAB PO SCH (09:00)
[2016-10-26] MEDS: CYANOCOBALAMIN 100 MCG TAB PO SCH (09:00)
[2016-10-26] MEDS: FOLIC ACID 1 MG TAB PO SCH (09:00)
[2016-10-26] MEDS: PANTOPRAZOLE 40 MG INJ VIAL IVP SCH (09:03)
[2016-10-26] MEDS ORDERED: KCL 20 MEQ/WATER INJ PREMIX 100 ML IV SCH (10:16)
--- NOTE | 2016-10-26 10:30 | NUR ---
PT IS SLEEPING IN BED, AWAKEN BY STERNAL RUB, NO S/S OF RESPIRATORY DISTRESS OR DISCOMFORT NOTED, CALL LIGHT IS WITHIN REACH, WILL CONTINUE TO MONITOR.
[2016-10-26 12:00] VITALS: BP 135/86
--- NOTE | 2016-10-26 12:30 | NUR ---
PT SLEEPING IN BED, NO S/S OF RESPIRATORY DISTRESS OR DISCOMFORT NOTED, CALL LIGHT WITHIN REACH, WILL CONTINUE TO MONITOR.
--- NOTE | 2016-10-26 12:51 | NUR ---
SS NOTE: PER MARCELA FROM [facility] ([phone]), PT CAN GO TO ROOM [address] IRTO GRIGSBY UPON DISCHARGE.
--- NOTE | 2016-10-26 13:10 | NUR ---
SS NOTE: MESSAGE LEFT FOR PT'S PARENTS, MARLEY AND DOROTA REGARDING PT'S DISCHARGE PLAN TO [facility] (PT'S MOTHER, DOROTA CHOSE THIS FACILITY FOR PT DURING PRIOR ADMISSION).
--- NOTE | 2016-10-26 13:10 | NUR ---
SATURATION 88% ON ROOM AIR POST HHN THERAPY PLACED ON SUPPLEMENTAL OXYGEN AT 2 LPM VIA [place] COUTURIERE TO NOTIFY HYUN/ADRIÁN DAJUAN [facility] V[address] [facility]
--- NOTE | 2016-10-26 13:26 | NUR ---
10/26/16 RD FOLLOW-UP ASSESSMENT COMPLETED PLEASE REFER TO NUTRITION ASSESSMENT UNDER CARE ACTIVITY FOR ESTIMATED NUTRITIONAL NEEDS. 1. WHEN MEDICALLY FEASIBLE, INITAITE ENTERAL NUTRITION SUPPORT VIA J-TUBE: FIBERSOURCE HN TO START SLOW AT 30 ML/HR CONTINUOUS AND ADVANCE 10 ML Q8H TO A GOAL RATE OF 50 ML/HR CONTINUOUS (PROVIDES 1296 KCAL, 58 G PROTEIN, 969 ML FREE WATER - MEETS 85% KCAL + >100% PROTEIN ESTIMATED NEEDS). IF NO IV FLUIDS, 100 ML WATER FLUSH Q8H. 2. RD TO FOLLOW-UP 2-3 DAYS; HIGH RISK DORI PATEL RD
--- NOTE | 2016-10-26 14:30 | NUR ---
PT RESTING IN BED, NO S/S OF RESPIRATORY DISTRESS OR DISCOMFORT NOTED, CALL LIGHT WITHIN REACH, WILL CONTINUE TO MONITOR.
--- NOTE | 2016-10-26 14:45 | NUR ---
FLUSHED THE PATIENTS MENDOZA LINE WITH 10ML NS. THERE IS 300 ML OF ORTEGA RED COLOR LIKE URINE IN THE MENDOZA BAG.
[2016-10-26 16:00] VITALS: BP 131/69
--- NOTE | 2016-10-26 16:45 | NUR ---
PT SLEEPING IN BED AT THIS TIME, NO S/S OF RESPIRATORY DISTRESS OR DISCOMFORT NOTED, WILL CONTINUE TO MONITOR.
--- NOTE | 2016-10-26 17:38 | NUR ---
PT RESTING IN BED, NO S/S OF RESPIRATORY DISTRESS OR DISCOMFORT NOTED, MENDOZA, CATHETER IRRIGATED WITH 10 ML OF NS, ALL NEEDS MET AT THIS TIME, WILL CONTINUE TO MONITOR.
--- NOTE | 2016-10-26 19:10 | NUR ---
ENDORSE PT TO ADRIÁN GRAY. FOR CONTINUITY OF CARE. PT STABLE AT THIS TIME.
--- NOTE | 2016-10-26 19:15 | NUR ---
RECEIVED PT ON BED, AWAKE, NON-VERBAL, VITAL SIGNS STABLE, FLACC-0, ON CONTINUOUS PULSE OX WITH SAT-94-96% ON O2 2L/NC, NO SOB NOTED, IVF INFUSING WELL VIA RT LEG IV LINE, MAINTAINED ON NPO, MENDOZA CATHETER IN PLACE WITH LIGHT ORTEGA COLORED URINE OUTPUT WITH SMALL CLOTS NOTED, SAFETY MEASURES IN PLACE, CALL LIGHT AND BED ALARM ON, CALL LIGHT WITHIN REACH.
[2016-10-26 20:00] VITALS: BP 139/78
[2016-10-26] MEDS: SIMVASTATIN 20 MG TAB PO SCH (20:13)
--- NOTE | 2016-10-26 20:20 | NUR ---
PT HYPOTHERMIC, TEMP-95.5, PUT ON ZANE HUGGER TO KEEP PT WARM, REPOSITIONED Q2H AND OFFLOAD PRESSURE AREAS, ALL NEEDS ANTICIPATED.
--- NOTE | 2016-10-26 22:10 | NUR ---
ROUNDED ON PT, SLEEPING, NO SIGNS OF DISTRESS, FLACC-0, MONITORED CLOSELY.
[2016-10-27] VITALS: BP 132/66
--- NOTE | 2016-10-27 | NUR ---
PT SLEEPING, NO SIGNS OF DISTRESS, VITAL SIGNS STABLE, CONTINUE ON ZANE HUGGER WARMER, MENDOZA CATH DRAINING WELL WITH LIGHT ORTEGA COLORED URINE OUTPUT, CONTINUE TO REPOSITION Q2H AND OFFLOAD PRESSURE AREAS, IVF ANTIBIOTIC INFUSING WELL.
[2016-10-27] MEDS: NACL 0.45% 1,000 ML IV SCH ×2 (01:27→05:18)
[2016-10-27] MEDS: ALBUTEROL SULFATE/IPRATROPIU 3 ML SOL IH SCH ×4 (02:13→19:40)
--- NOTE | 2016-10-27 03:45 | NUR ---
PT SEEN TRYING TO TAKE OFF NASAL CANNULA, MICHELLE MITTENS ADJUSTED, VITAL SIGNS STABLE, NO SOB NOTED, MONITORED CLOSELY.
[2016-10-27 04:00] VITALS: BP 121/82
--- NOTE | 2016-10-27 05:00 | NUR ---
AM CARE DONE, BM WITH MODERATE SOFT STOOL, KEPT CLEAN AND DRY, WITH 550 URINE OUTPUT, IVF INFUSING WELL.
[2016-10-27] MEDS: PIPER/TAZO 2.25GM/D5W PREMIX 50 ML IV SCH (05:14)
[2016-10-27] MEDS: LEVOTHYROXINE 0.05 MG TAB PO SCH (05:32)
[2016-10-27] MEDS ORDERED: DEXTROSE 50% 50 ML SYR IVP ONE (06:46)
--- NOTE | 2016-10-27 06:55 | NUR ---
RECEIVED CRITICAL GLUCOSE LEVEL OF 40, ACCUCHECK DONE WITH 34 RESULT, PT ASYMPTOMATIC, LEFT MESSAGE ON RESIDENTS PHONE NUMBER, PAGED DR HERNANDEZ AND DR CAPPS, AWAITING CALL BACK, D50 1 AMP IVP GIVEN BY CHARGE NURSE BUFFY.
[2016-10-27] MEDS: BUDESONIDE 0.5 MG/2 ML NEBU INH SCH ×2 (06:58→19:41)
--- NOTE | 2016-10-27 07:06 | NUR ---
BLOOD SUGAR RECHECKED WITH 118 RESULT.
--- NOTE | 2016-10-27 07:34 | NUR ---
PAGED RESIDENT PHONE NUMBER AND SPOKE TO DR GARCIA, MADE AWARE OF GLUCOSE LEVEL OF 40 AND THAT WE GAVE A DOSE OF D50 1 AMP IVP, WILL PUT ORDERS, ENDORSE TO JOANIE SAMPSON TO FOLLOW UP ON ORDERS.
--- NOTE | 2016-10-27 07:36 | NUR ---
RECEIVED REPORT FROM NIGHT RN. PT RESTING IN BED, AAOX1, IV PATENT AND INTACT, O2 2L NC, NO S/S OF ACUTE DISTRESS NOTED, MENDOZA IN PLACE AND PATENT, BRUISE NOTED ON RT ARM, RT FOOT, SUPERFICIAL SCRATCHES NOTE ON FACE, LACERATION ON LT KNEE WITH SLIGHTLY DRY BLOOD NOTED, LT ARM RED AND SWOLLEN, REDNESS NOTED ON BUTTOCKS, CALL LIGHT WITHIN REACH, SAFETY MEASURE NOTED, WILL CONTINUE TO MONITOR.
[2016-10-27 08:00] VITALS: BP 130/81
[2016-10-27] MEDS: CALCIUM ACETATE 667 MG TAB PO SCH ×3 (08:00→17:00)
[2016-10-27] MEDS: FAMOTIDINE 20 MG TAB PO SCH (08:35)
[2016-10-27] MEDS: DOCUSATE SODIUM 100 MG GELCAP PO SCH ×2 (08:35→20:40)
[2016-10-27] MEDS: FOLIC ACID 1 MG TAB PO SCH (08:35)
[2016-10-27] MEDS: CYANOCOBALAMIN 100 MCG TAB PO SCH (08:36)
[2016-10-27] MEDS: MULTIVITAMIN 1 TAB PO SCH (08:36)
[2016-10-27] MEDS: PANTOPRAZOLE 40 MG INJ VIAL IVP SCH (09:56)
[2016-10-27] MEDS: DEXT 5% / NACL 0.45% 1,000 ML IV SCH (09:57)
--- NOTE | 2016-10-27 10:14 | NUR ---
NOTIFIED DR. EDOUARD ABOUT PT'S LEFT ARM BEING SWOLLEN AND RED.
[2016-10-27 12:00] VITALS: BP 120/63
--- NOTE | 2016-10-27 12:30 | NUR ---
PT SLEEPING IN BED, NO S/S OF ACUTE DISTRESS NOTED, RESPIRATION EVEN AND UNLABORED, O2 SAT AT 95%, CALL LIGHT WITHIN REACH, SAFETY MEASURE ENSURED, WILL CONTINUE TO MONITOR
--- NOTE | 2016-10-27 13:06 | NUR ---
10/27/16 RD FOLLOW UP COMPLETED PLEASE REFER TO NUTRITION PROGRESS NOTE UNDER CARE ACTIVITY FOR ESTIMATED NUTRITION NEEDS. RD RECOMMENDATIONS: 1. WHEN MEDICALLY FEASIBLE, INITIATE ENTERAL NUTRITION SUPPORT VIA J-TUBE: FIBERSOURCE HN TO START SLOW AT 30 ML/HR CONTINUOUS AND ADVANCE 10 ML Q8H TO A GOAL RATE OF 50 ML/HR CONTINUOUS (PROVIDES 1296 KCAL, 58 G PROTEIN, 969 ML FREE WATER - MEETS 85% KCAL + >100% PROTEIN ESTIMATED NEEDS). IF NO IV FLUIDS, 100 ML WATER FLUSH Q8H. 2. RD TO FOLLOW-UP 2-3 DAYS; HIGH RISK MILLI SALGUERO, RD
--- NOTE | 2016-10-27 15:39 | NUR ---
PT SEEN AND EXAMINED BY DR. EDOUARD. NO S/S OF ACUTE DISTRESS NOTED, NO S/S OF PAIN OR DISCOMFORT NOTED, CALL LIGHT WITHIN REACH, SAFETY MEASURE ENSURED, WILL CONTINUE TO MONITOR
[2016-10-27 16:00] VITALS: BP 125/78
--- NOTE | 2016-10-27 17:10 | NUR ---
PT SLEEPING IN BED, NO S/S OF ACUTE DISTRESS NOTED, RESPIRATION EVEN AND UNLABORED, CALL LIGHT WITHIN REACH, SAFETY MEASURE ENSURED, WILL CONTINUE TO MONITOR
--- NOTE | 2016-10-27 19:22 | NUR ---
ENDORSED PLAN OF CARE TO NIGHT RN. PT IS STABLE
--- NOTE | 2016-10-27 19:23 | NUR ---
RECEIVE DPT IN STABLE CONDITION FROM DE NURSE. AWAKE, NON VERBAL . ON TELE MONITOR -SR. WITH NO ACUTE RESPIRATORY DISTRESS NOTED ON O22L/NC. BEDBOUND. IVF INFUSING WELL ON THE RT LEG G#22. MENDOZA CATH TO GRAVITY. WITH EDEMA ON MICHELLE FEET AND LT ARM ALSO SWOLLEN. BED ON LOW POSITION, MANAGER OF PURCHASING AILS UP X2. FREQUENT ROUNDS NEEDED. CALL LIGHT PLACED WITHIN EASY REACH. WILL CONTINUE TO MONITOR.
[2016-10-27 20:00] VITALS: BP 132/73
[2016-10-27] MEDS: SIMVASTATIN 20 MG TAB PO SCH (20:40)
[2016-10-27] MEDS: BLOOD GLUCOSE MONITORING 1 DEV DEV FS SCH (20:40)
--- NOTE | 2016-10-27 20:40 | NUR ---
BLOOD SUGAR WAS CHECKED RESULT 116. PT NPO BUT WITH IVF INFUSING WELL.
--- NOTE | 2016-10-27 22:14 | NUR ---
PAGED DR. PAZ TO CLARIFY NGT FEEDING. CALLED BACK. SHE SAID START FEEDING IN AM. TO ENDORSE TO AM NURSE.
[2016-10-27] MEDS ORDERED: PIPERACILLIN/TAZOBACTAM 2.25 GM VIAL IV ONE (23:41)
--- NOTE | 2016-10-27 23:50 | NUR ---
PT CONFUSED, TRYING TO REMOVE O2 CANNULA,O2 SAT TO LOW 88 % IF NOT ON O2. HAD SOME NOSE BLEEDING DUE TO RUBBING HARD ON THE NOSE TO REMOVE THE CANNULA. ABLE TO PUT O2 BACK. O2 SAT 0N THE 93%. WILL CONTINUE TO MONITOR.
[2016-10-28] VITALS: BP 107/63
[2016-10-28] MEDS: PIPER/TAZO 2.25GM/D5W PREMIX 50 ML IV SCH ×5 (00:05→23:15)
[2016-10-28] MEDS: ALBUTEROL SULFATE/IPRATROPIU 3 ML SOL IH SCH ×4 (00:39→19:04)
--- NOTE | 2016-10-28 00:40 | NUR ---
HAD A BREATHING TREATMENT GIVEN BY RT. NO SOB NOTED. WILL CONTINUE TO MONITOR.
[2016-10-28] MEDS: DEXT 5% / NACL 0.45% 1,000 ML IV SCH ×3 (01:40→15:47)
--- NOTE | 2016-10-28 02:00 | NUR ---
PT O2 SAT 89-90% . RT INCREASED O2 T0 4L/NC WITH HUMIDIFIER, O2 SAT UP TO 93%- 94% WITH NEW REGULAR O2 CANNULA. WILL CONTINUE TO MONITOR.
[2016-10-28 03:37] VITALS: BP 107/64
[2016-10-28] MEDS ORDERED: PIPERACILLIN/TAZOBACTAM 2.25 GM VIAL IV ONE (05:17)
--- NOTE | 2016-10-28 05:30 | NUR ---
O2 SAT 98% WITH 4L/NC. DECREASED TO 3L AND O2 SAT STILL REMAINS 97%. WILL CONTINUE TO MONITOR. NO SOB NOTED.
[2016-10-28] MEDS: LEVOTHYROXINE 0.05 MG TAB PO SCH (06:19)
[2016-10-28] MEDS: BLOOD GLUCOSE MONITORING 1 DEV DEV FS SCH ×3 (06:20→21:12)
--- NOTE | 2016-10-28 06:20 | NUR ---
LATEST BLOOD SUGAR THIS AM 139. STILL WITH CONTINUOUS IVF .
--- NOTE | 2016-10-28 07:04 | NUR ---
ENDORSED PT IN STABLE CONDITION TO AM, NURSE FOR CONTINUITY OF CARE.
--- NOTE | 2016-10-28 07:08 | NUR ---
RECEIVED REPORT FROM NIGHT RN. PT SLEEPING IN BED, AAOX1, NO S/S OF ACUTE DISTRESS NOTED, IV PATENT AND INTACT, MENDOZA IN PLACE AND PATENT, PT IS ON O2 3L NC, CALL LIGHT WITHIN REACH, SAFETY MEASURE ENSURED, WILL CONTINUE TO MONITOR
[2016-10-28] MEDS: BUDESONIDE 0.5 MG/2 ML NEBU INH SCH ×2 (07:31→19:04)
[2016-10-28 08:00] VITALS: BP 118/67
[2016-10-28] MEDS: CALCIUM ACETATE 667 MG TAB PO SCH ×3 (08:00→16:00)
[2016-10-28] MEDS: CYANOCOBALAMIN 100 MCG TAB PO SCH (09:00)
[2016-10-28] MEDS: MULTIVITAMIN 1 TAB PO SCH (09:00)
[2016-10-28] MEDS: DOCUSATE SODIUM 100 MG GELCAP PO SCH ×2 (09:00→21:00)
[2016-10-28] MEDS: FOLIC ACID 1 MG TAB PO SCH (09:00)
[2016-10-28] MEDS: FAMOTIDINE 20 MG TAB PO SCH (09:00)
--- NOTE | 2016-10-28 09:05 | NUR ---
ATTEMPTED TO INSERT NG TUBE INTO RT NARE, PT DEVELOPED NOSE BLEED, PRESSURE HELD WITH ICE PACK, BLEEDING STOPPED WITHIN 5 MINS, MARIO ALBERTO NOLASCO MADE AWARE, UNABLE TO INSERT NG TUBE AT THIS TIME. NO S/S OF ACUTE DISTRESS NOTED, WILL CONTINUE TO MONITOR.
[2016-10-28] MEDS: PANTOPRAZOLE 40 MG INJ VIAL IVP SCH (09:30)
[2016-10-28 12:00] VITALS: BP 118/70
--- NOTE | 2016-10-28 12:00 | NUR ---
PT SLEEPING IN BED, NO S/S OF ACUTE DISTRESS NOTED, NO S/S OF PAIN OR DISCOMFORT, CALL LIGHT WITHIN REACH, SAFETY MEASURE ENSURED, WILL CONTINUE TO MONITOR
--- NOTE | 2016-10-28 12:15 | NUR ---
PT BLEEDING FROM THE LT NARE, ICE AND PRESSURE APPLIED ON THE NOSE BRIDGE, BLEEDING STOPPED AFTER 4 MINS, DR. DEOUARD MADE AWARE, PT IS RESTING IN BED, NO S/S OF ACUTE DISTRESS NOTED, CALL LIGHT WITHIN REACH, SAFETY MEASURE ENSURED, WILL CONTINUE TO MONITOR. Addendum: 10/28/16 at 1508 by Robbie Menendez RN TIME 1415
[2016-10-28] MEDS ORDERED: POTASSIUM CHLORIDE 10 MEQ TABER PO ONE (14:35)
[2016-10-28] MEDS ORDERED: DEXTROSE 50% 50 ML SYR IVP PRN (14:45)
[2016-10-28] MEDS ORDERED: KCL 20 MEQ/WATER INJ PREMIX 100 ML IV SCH (15:00)
--- NOTE | 2016-10-28 15:43 | NUR ---
PLACED A CALL TO MARLEY RAMIREZ. UNABLE TO GET ON HOLD WITH HIM, LEFT MESSAGE, WILL TRY TO CALL HIM LATER.
[2016-10-28 16:00] VITALS: BP 128/63
[2016-10-28] MEDS ORDERED: diphenhydrAMINE 50 MG/ML VIAL IVP SCH (16:00)
[2016-10-28] MEDS ORDERED: FUROSEMIDE 20 MG TAB PO SCH (16:00)
[2016-10-28] MEDS ORDERED: ACETAMINOPHEN 650 MG SUPP RC SCH (16:00)
[2016-10-28] MEDS ORDERED: ACETAMINOPHEN 325 MG TAB PO SCH (16:00)
[2016-10-28] MEDS ORDERED: FUROSEMIDE 20 MG/2 ML VIAL IVP SCH (16:00)
[2016-10-28] MEDS ORDERED: diphenhydrAMINE 12.5 MG/5 ML UDC PO SCH (16:00)
--- NOTE | 2016-10-28 16:30 | NUR ---
PT SLEEPING IN BED, RESPIRATION EVEN AND UNLABORED, NO S/S OF ACUTE DISTRESS NOTED, CALL LIGHT WITHIN REACH, SAFETY MEASURE ENSURED, WILL CONTINUE TO MONITOR.
--- NOTE | 2016-10-28 17:56 | NUR ---
LEFT MESSAGE FOR MARLEY FAJARDO REGARDING BLOOD TRANSFUSION CONSENT. DR. GARCIA NOTIFIED. AWAITING CALLBACK.
[2016-10-28] MEDS: diphenhydrAMINE 50 MG/ML VIAL IVP SCH (19:06)
[2016-10-28] MEDS: ACETAMINOPHEN 650 MG SUPP RC SCH (19:07)
--- NOTE | 2016-10-28 19:21 | NUR ---
ENDORSED PLAN OF CARE TO NIGHT RN. PATIENT IS STABLE.
--- NOTE | 2016-10-28 19:22 | NUR ---
RECEIVED REPORT FROM DAY SHIFT NURSE. PT IS AWAKE, APPEARS TO BE DROWSY, NON, VERBAL, ON TELE MONITOR, FLACC 0. ON NASAL CANNULA, HAS NO S/S OF RESPIRATORY DISTRESS/DISCOMFORT NOTED. IV SITE IS PATENT AND INTACT. MENDOZA CATHETER IN PLACED, INDWELLING WELL WITH URINE OUTPUT NOTED. PLAN OF CARE DISCUSSED, PT IS NON VERBAL, UNABLE TO VERBALIZE UNDERSTANDING. SAFETY MEASURES CHECKED, CALL LIGHT WITHIN REACH. WILL CONTINUE TO MONITOR.
[2016-10-28 20:00] VITALS: BP 112/62
--- NOTE | 2016-10-28 20:00 | NUR ---
STATED A NEW BAG OF PACKED RBC. VERIFIED BY 2 NURSES. V/S CHECKED, BP= 112/62, P=92, T=97.5,R=20, FLACC 0. PROVIDED HEALTH TEACHING, REASON FOR BLOOD TRANSFUSION, PT IS NON- VERBAL. WILL CONTINUE TO MONITOR.
[2016-10-28] MEDS: SIMVASTATIN 20 MG TAB PO SCH (21:00)
--- NOTE | 2016-10-28 21:14 | NUR ---
PO MEDS NOT GIVEN DUE TO PT UNABLE TO SWALLOW AND UNABLE TO INSERT NGT DUE TO NOSE BLEED.
--- NOTE | 2016-10-28 22:37 | NUR ---
PRESENCE OF COUGH NOTED, UNABLE TO EXPECTORATE PHLEGM, SUCTIONED THE PT, SAT O2= 93%, NO S/S OF DISTRESS NOTED.
--- NOTE | 2016-10-28 23:05 | NUR ---
1ST BAG OF PRBC DONE. V/S CHECKED AND STABLE. HAS NO ADVERSE REACTION OF BLOOD TRANSFUSION NOTED. WILL ADMINISTER 2ND BAG OF PRBC.
[2016-10-28] MEDS: FUROSEMIDE 20 MG/2 ML VIAL IVP SCH (23:15)
[2016-10-29] VITALS: BP 118/78
[2016-10-29] MEDS: diphenhydrAMINE 50 MG/ML VIAL IVP SCH ×2 (00:13→04:00)
[2016-10-29] MEDS: ACETAMINOPHEN 650 MG SUPP RC SCH ×2 (00:13→04:00)
[2016-10-29] MEDS: ALBUTEROL SULFATE/IPRATROPIU 3 ML SOL IH SCH ×4 (00:28→19:19)
--- NOTE | 2016-10-29 00:40 | NUR ---
STARTED A 2ND BAG OF PACKED RBC, VERIFIED WITH 2 NURSES. V/S CHECKED AND STABLE, FLACC 0. WILL CONTINUE TO MONITOR
--- NOTE | 2016-10-29 02:40 | NUR ---
BLOOD TRANSFUSION IS INFUSING WELL. PT HAS NO S/S OF DISTRESS. CALL LIGHT WITHIN REACH. WILL CONTINUE TO MONITOR.
--- NOTE | 2016-10-29 03:45 | NUR ---
2ND BAG OF PRBC DONE. NO SIGNS OF ADVERSE REACTION NOTED. V/S CHECKED AND STABLE. FLACC0. WILL CONTINUE TO MONITOR.
[2016-10-29 04:00] VITALS: BP 119/70
[2016-10-29] MEDS: FUROSEMIDE 20 MG/2 ML VIAL IVP SCH (04:20)
[2016-10-29] MEDS ORDERED: FUROSEMIDE 20 MG/2 ML VIAL IVP ONE (04:21)
[2016-10-29] MEDS: PIPER/TAZO 2.25GM/D5W PREMIX 50 ML IV SCH ×3 (05:30→23:56)
[2016-10-29] MEDS: LEVOTHYROXINE 0.05 MG TAB PO SCH (05:30)
--- NOTE | 2016-10-29 06:11 | NUR ---
AM CARE DONE, LOOSE BOWEL MOVEMENT NOTED. REPOSITIONED THE PT. NO DISTRESS NOTED.
[2016-10-29] MEDS: BLOOD GLUCOSE MONITORING 1 DEV DEV FS SCH ×4 (06:50→20:31)
--- NOTE | 2016-10-29 07:20 | NUR ---
PT AWAKE AND ALERT, NO SIGNS OF ACUTE DISTRESS. BED IN LOW POSITION WITH CALL LIGHT WITHIN REACH. GAVE REPORT TO NUT PACKER NURSE FOR CONTINUITY OF CARE. Addendum: 10/29/16 at 1941 by Aleksandra Baez RN ENTERED TIME OF NOTE WRONG, ACCURATE TIME 1929. PT AWAKE AND ALERT, NO SIGNS OF ACUTE DISTRESS. BED IN LOW POSITION WITH CALL LIGHT WITHIN REACH. GAVE REPORT TO NUT PACKER NURSE FOR CONTINUITY OF CARE.
--- NOTE | 2016-10-29 07:20 | NUR ---
ENDORSED TO DAY SHIFT. PT IN STABLE CONDITION.
--- NOTE | 2016-10-29 07:21 | NUR ---
PT AWAKE, ALERT AND NON VERBAL, BREATHING EVEN AND UNLABORED BILATERALLY, BOWEL SOUNDS ACTIVE IN ALL 4 QUADRANTS, SKIN INTACT WITH REDNESS ON SACRUM AND BRUISING ON RIGHT ARM, BEDFAST, INCONTINENT BOWEL AND BLADDER, MENDOZA CATHETER IN PLACE, FLACC SCORE 0, BED IN LOW POSITION WITH BILATERAL HALF SIDE RAILS UP, CALL LIGHT WITHIN REACH. ORIENTED TO UNIT AND HOSPITAL, PT UNABLE TO COMPREHEND REINFORCEMENT NEEDED.
[2016-10-29] MEDS: BUDESONIDE 0.5 MG/2 ML NEBU INH SCH ×2 (07:37→19:19)
--- NOTE | 2016-10-29 07:43 | NUR ---
PT HAD NOSE BLEED WHILE RECEIVING BREATHING TX SMALL AMT OF BLOOD ADRIÁN MONIQUE NOTIFIED AND DURING TX WAS PULLING MASK OFF, DURING PULMICORT TX PT WAS COMBATIVE PULLING AND HITTING RT DURING TX
[2016-10-29] MEDS: DEXT 5% / NACL 0.45% 1,000 ML IV SCH (07:45)
[2016-10-29 07:50] VITALS: BP 126/74
[2016-10-29] MEDS: CALCIUM ACETATE 667 MG TAB PO SCH ×3 (08:00→16:33)
--- NOTE | 2016-10-29 08:57 | NUR ---
ABG DRAWN ON RB WITHOUT INCIDENT WITH THE HELP OF ADRIÁN MONIQUE AND AT 0900 ABG RESULTS WERE GIVEN TO WITH NO CHANGES MADE
[2016-10-29] MEDS: DOCUSATE SODIUM 100 MG GELCAP PO SCH ×2 (09:00→20:57)
[2016-10-29] MEDS: MULTIVITAMIN 1 TAB PO SCH (09:00)
[2016-10-29] MEDS: INSULIN DETEMIR 100 UNITS/ML 10 ML VIAL SUBQ SCH (09:00)
[2016-10-29] MEDS: FAMOTIDINE 20 MG TAB PO SCH (09:00)
[2016-10-29] MEDS: CYANOCOBALAMIN 100 MCG TAB PO SCH (09:00)
[2016-10-29] MEDS: FOLIC ACID 1 MG TAB PO SCH (09:00)
--- NOTE | 2016-10-29 09:00 | NUR ---
WAS SEEN BY DR CHANCE, RECEIVED NEW ORDERS, NOTED AND WILL CARRY OUT.
[2016-10-29] MEDS: PANTOPRAZOLE 40 MG INJ VIAL IVP SCH (09:03)
--- NOTE | 2016-10-29 09:20 | NUR ---
BLOOD SUGAR 105, PER DR ROBSON HAMLIN, WILL CARRY OUT.
[2016-10-29] MEDS ORDERED: FUROSEMIDE 20 MG/2 ML VIAL IVP SCH (10:15)
--- NOTE | 2016-10-29 10:28 | NUR ---
RECEIVED NEW ORDER FROM DR WEBB TO PACK RIGHT NOSTRIL, PATIENT KEEPS PULLING GAUZE OUT. WILL CONTINUE TO TRY THROUGHOUT SHIFT.
--- NOTE | 2016-10-29 10:43 | NUR ---
PT AWAKE AND ALERT, NON-VERBAL, NO SIGNS OF ACUTE DISTRESS. CATALINA FROM XRAY TOOK PATIENT OFF UNIT FOR UPPER GI X-RAY.
--- NOTE | 2016-10-29 11:45 | NUR ---
PT BACK FROM XRAY. PT AWAKE AND ALERT, NO SIGNS OF ACUTE DISTRESS. PER CATALINA XRAY KEEP PT. 45-90 DEGREE SITTING POSITION FOR THE NEXT 4 HOURS, WILL CARRY OUT.
--- NOTE | 2016-10-29 11:50 | NUR ---
IV SITE NOT LONGER WORKING, WILL START NEW IV TO ADMINISTER IF FLUIDS AND 1200 ANTIBIOTICS.
[2016-10-29 12:00] VITALS: BP 116/74
--- NOTE | 2016-10-29 13:15 | NUR ---
PERFORMED 3 IV INSERTION ATTEMPTS, UNABLE TO START IV. REPORTED TO CHARGE NURSE KILO. KILO WILL ATTEMPT.
--- NOTE | 2016-10-29 14:00 | NUR ---
KILO ATTEMPTED IV, UNABLE TO INSERT.
--- NOTE | 2016-10-29 14:19 | NUR ---
KILO SAMPSON REPORTED INABILITY TO START IV ON PATIENT TO DR WEBB, NO NEW ORDERS AT THIS TIME.
--- NOTE | 2016-10-29 15:30 | NUR ---
MARY SAMPSON ATTEMPTED IV, WAS UNSUCCESSFUL WELL.
[2016-10-29 16:00] VITALS: BP 140/74
--- NOTE | 2016-10-29 17:00 | NUR ---
SPOKE WITH DR WEBB REGARDING INABILITY TO PLACE IV, NO NEW ORDERS GIVEN AT THIS TIME.
--- NOTE | 2016-10-29 19:30 | NUR ---
RECEIVED REPORT FROM KAYDEN SAMPSON AT BEDSIDE. PT IS NON-VERBAL RESPONSIVE. UNABLE TO FOLLOW SIMPLE COMMANDS. INITIAL ASSESSMENT DONE. NO S/S OF RESPIRATORY DISTRESS OR SOB NOTED. NO S/S OF ANY PAIN OR ANY DISCOMFORT AT THIS TIME. PLAN OF CARE REVIEWED TO PT BUT UNABLE TO COMPREHEND. CALL LIGHT WITHIN REACH. WILL CONTINUE TO MONITOR.
[2016-10-29 20:00] VITALS: BP 124/76
[2016-10-29] MEDS: SIMVASTATIN 20 MG TAB PO SCH (20:57)
--- NOTE | 2016-10-29 23:45 | NUR ---
ABLE TO START IV LINE ON THE RIGHT HAND GAUGE 24 AND PT TOLERATED WELL. NEW IV LINE HAS A GOOD BLOOD RETURN. WILL CONTINUE TO MONITOR.
[2016-10-30] VITALS: BP 128/79
--- NOTE | 2016-10-30 00:10 | NUR ---
PT IS SLEEPING RIGHT NOW BUT EASILY AROUSABLE. NO S/S OF ANY DISCOMFORT AT THIS TIME. ALL NEEDS ARE ATTENDED. CALL LIGHT WITHIN REACH. WILL CONTINUE TO MONITOR.
[2016-10-30] MEDS: DEXT 5% / NACL 0.45% 1,000 ML IV SCH ×2 (00:57→10:38)
[2016-10-30] MEDS: ALBUTEROL SULFATE/IPRATROPIU 3 ML SOL IH SCH ×4 (00:57→20:00)
[2016-10-30 04:00] VITALS: BP 121/73
--- NOTE | 2016-10-30 05:00 | NUR ---
AM CARE RENDERED. BED LINEN CHANGED. REPOSITIONED PATIENT. KEPT CLEAN AND DRY. CALL LIGHT WITHIN REACH. WILL CONTINUE TO MONITOR.
[2016-10-30] MEDS: PIPER/TAZO 2.25GM/D5W PREMIX 50 ML IV SCH ×4 (05:09→23:48)
[2016-10-30] MEDS: LEVOTHYROXINE 0.05 MG TAB PO SCH (06:23)
[2016-10-30] MEDS: BLOOD GLUCOSE MONITORING 1 DEV DEV FS SCH ×4 (06:45→21:25)
[2016-10-30] MEDS: BUDESONIDE 0.5 MG/2 ML NEBU INH SCH ×2 (07:15→20:00)
--- NOTE | 2016-10-30 07:16 | NUR ---
PT COMBATIVE PULMICORT NOT GIVEN
[2016-10-30] MEDS ORDERED: FUROSEMIDE 40 MG/4 ML VIAL IVP SCH (07:17)
--- NOTE | 2016-10-30 07:20 | NUR ---
PT HAS NO S/S OF ANY DISCOMFORT. PLAN OF CARE ENDORSED TO ANGLE SAMPSON AT BEDSIDE FOR CONTINUITY OF CARE.
--- NOTE | 2016-10-30 07:20 | NUR ---
RECEIVED REPORT FROM NIGHT NURSE, PT IS NON VERBAL, ON ROOM, IV TO RIGHT HAND INFUSING WELL, MENDOZA IN PLACE, BEDBOUND, SACRAL REDNESS, RIGHT ARM BRUISE, INITIAL ASSESSMENT COMPLETED, REVIEWED PLAN OF CARE WITH PT, PT UNABLE TO VERBALIZED UNDERSTANDING, AL SAFETY PRECAUTIONS MET. ORIENTED PT ROOM AND ENVIRONMENT. ALL NEEDS MET. CALL LIGHT WITHIN REACH. WILL CONTINUE TO MONITOR.
[2016-10-30 08:00] VITALS: BP 128/78
[2016-10-30] MEDS: CALCIUM ACETATE 667 MG TAB PO SCH ×3 (08:00→16:09)
[2016-10-30] MEDS: FOLIC ACID 1 MG TAB PO SCH (08:02)
[2016-10-30] MEDS: MULTIVITAMIN 1 TAB PO SCH (08:02)
[2016-10-30] MEDS: DOCUSATE SODIUM 100 MG GELCAP PO SCH ×2 (08:02→21:00)
[2016-10-30] MEDS: FAMOTIDINE 20 MG TAB PO SCH (08:02)
[2016-10-30] MEDS: CYANOCOBALAMIN 100 MCG TAB PO SCH (08:02)
[2016-10-30] MEDS: PANTOPRAZOLE 40 MG INJ VIAL IVP SCH (08:08)
[2016-10-30] MEDS: INSULIN DETEMIR 100 UNITS/ML 10 ML VIAL SUBQ SCH (08:14)
--- NOTE | 2016-10-30 08:19 | NUR ---
IV MEDICATIONS GIVEN, PT UNABLE TO SWALLOW PO MEDICATIONS. ALL NEEDS MET. CALL LIGHT WITHIN REACH WILL CONTINUE TO MONITOR.
[2016-10-30] MEDS ORDERED: MAG SULF 2000 MG/WATER PREMIX 50 ML IV SCH (09:30)
--- NOTE | 2016-10-30 09:44 | NUR ---
RECHECKED PT BS AT 47 GAVE 50ML OF 50% DEXTROSE IV PUSH. WILL RECHECK BLOOD SUGAR. ALL NEEDS MET. CALL LIGHT WITHIN REACH. WILL CONTINUE TO MONITOR.
--- NOTE | 2016-10-30 11:11 | NUR ---
RECEIVED ORDER FOR TRANSFER TO HIGHER LEVEL OF CARE [facility], SPOKE WITH ELENI SUAREZ [facility], . FAXED INFORMATION AND SPOKE WITH [place]AL[place] [facility] SPOKE WITH JOEY AND VALENCIA FAX INFORMATION. HE WANTS TO MAKE SURE THAT FAMILY WAS OK WITH TRANSFER IF THEY GET A BED. INFORMED DR. GAVIN.
--- NOTE | 2016-10-30 11:39 | NUR ---
BLOOD SUGAR OF 172 INSULIN NOT GIVEN PT IS NPO. ALL NEEDS MET. ALL SAFETY PRECAUTIONS MET. CALL LIGHT WITHIN REACH. WILL CONTINUE TO MONITOR
[2016-10-30 12:00] VITALS: BP 135/93
[2016-10-30] MEDS ORDERED: POTASSIUM CHLORIDE 40 MEQ, LIDOCAINE 1% 25 MG in NACL 0.9% 250 ML IV SCH (13:00)
--- NOTE | 2016-10-30 13:26 | NUR ---
SCRAPE GATHERER note (discharge summary report) S: Pt was provided with bedside swallow evaluation on 10/24/2016. O/A: SCRAPE GATHERER provided pt with education regarding purpose of evaluation and rationale for recommendations; however, pt unable to benefit from education provided. Pt was recommended for: 1) STRICT NPO (careful oral cares only) 2) consider alternative method(s) of nutrition/hydration/medication vs comfort measures, as appropriate 3) nursing to provide pt with frequent oral cares during NPO status to improve pt's oral hygiene/comfort, as appropriate 4) SCRAPE GATHERER to f/u for continued assessment of pt's ability to take PO safely 1-2 x week x 2 weeks as pt willing/able to participate safely, as appropriate. P: Pt has been recommended by Dr. Bender for transfer to higher level of care due to complete herniation of stomach and need for consideration of J-tube placement (instead of G-tube placement) per physician progress notes. Discharge pt from SCRAPE GATHERER intervention due to need for higher level of care. Physician may reorder if pt's status improves/warrants, as appropriate. G-codes: [id number] [id number] CARMEL NOMS level 1.
--- NOTE | 2016-10-30 13:36 | NUR ---
DUE MEDICATIONS GIVEN, NO S/S OF DISTRESS NOTED, FLACC-0. ALL SAFETY PRECAUTIONS MET. CALL LIGHT WITHIN REACH. WILL CONTINUE TO MONITOR.
--- NOTE | 2016-10-30 13:45 | NUR ---
LEFT A ([phone]) PT'S FAMILY ( MARLEY FAJARDO/FERNANDA) REGARDING TELEPHONE CONSENT FOR PICC LINE PLACEMENT, AWAITING FOR CALL BACK. MESSAGE LEFT FOR ANGLE PICC LINE NURSE ([phone]).
--- NOTE | 2016-10-30 14:10 | NUR ---
10/30/16 RD FOLLOW-UP ASSESSMENT COMPLETED PLEASE REFER TO NUTRITION ASSESSMENT UNDER CARE ACTIVITY FOR ESTIMATED NUTRITIONAL NEEDS. 1. WHEN MEDICALLY FEASIBLE, INITIATE PARENTERAL NUTRITION SUPPORT PER PHARMACY RECOMMENDATIONS 2. RD TO FOLLOW-UP 2-3 DAYS; HIGH RISK DORI PATEL RD
--- NOTE | 2016-10-30 14:31 | NUR ---
RECEIVED A CALL FROM ALFONZO FROM [facility]. SHE SAID THAT THEIR SURGEON, DR. MEEK, REVIEW THE INFORMATION AND SAID THAT THIS PATIENT AT PRESENT IS NOT A SURGICAL CANDIDATE AND SUGGESTED TPN FOR THIS PATIENT TO BUILD HER UP. DR. WEBB AWARE.
--- NOTE | 2016-10-30 15:50 | NUR ---
SPOKE WITH JOEY AT [facility]. HE SAID THEY ARE STILL WORKING ON THIS PATIENT. ALBERTO Lanza Addendum: 10/30/16 at 1551 by Radha James CM JOEY AT [facility] HAS THE PHONE NUMBER TO THE FLOOR.
[2016-10-30 16:00] VITALS: BP 121/60
--- NOTE | 2016-10-30 16:02 | NUR ---
LEFT VM TO DOROTA FAJARDO AT [phone] REGARDING OBTAINING CONSENT FOR PICC LINE AND TRANSFERRING PT TO [facility] [place]. AWAITING CALL BACK.
--- NOTE | 2016-10-30 17:43 | NUR ---
DUE MEDICATIONS GIVEN, PT IS AWAKE ALERT. NO S/S OF DISTRESS NOTED. FLACC-0. ALL NEEDS MET CALL LIGHT WITHIN REACH. WILL CONTINUE TO MONITOR.
--- NOTE | 2016-10-30 18:09 | NUR ---
MESSAGE LEFT for pt's family #[phone] (DOROTA/MARLEY FAJARDO) REGARDING TELEPHONE CONSENT FOR PICC PLACEMENT, STILL AWAITING FOR CALL BACK. PICC LINE NURSE ANGLE NOTIFIED AND STATED TO CALL THE VEHICLE CHECK IN CLERK ([phone]) WHENEVER CONSENT IS READY.
--- NOTE | 2016-10-30 19:10 | NUR ---
ENDORSED PLAN OF CARE TO NIGHT NURSE, PT IN STABLE CONDITION.
--- NOTE | 2016-10-30 19:30 | NUR ---
RECEIVED REPORT FROM DAY RN AT BEDSIDE, PATIENT IS AAOX1, APHASIC, ON ROOM AIR, NO SOB OR SIGN OF DISTRESS AT THIS TIME. PATIENT RESTING COMFORTABLE IN BED, IV TO RIGHT HAND PATENT AND INTACT. PATIENT SKIN HAS SACRAL REDNESS, BRUISES TO RIGHT ARM, SCABS TO LFA AND RIGHT WRIST, PATIENT DOES NOT APPEAR TO BE IN PAIN, FLACC-0, MENDOZA PRESENT WITH CLEAR YELLOW URINE DRAINING TO GRAVITY. DISCUSSED PLAN OF CARE WITH PATIENT, PATIENT UNABLE TO COMPREHEND, SAFETY MEASURES CHECKED, BED IN LOW POSITION, BED ALARM ON, WILL CONTINUE TO FREQUENTLY MONITOR.
[2016-10-30 20:00] VITALS: BP 111/82
--- NOTE | 2016-10-30 20:06 | NUR ---
PT KEEPS TAKING MASK OFF. HAD TO HOLD IT. HHN TX OF [place]B AND PULMICORT GIVEN. BIPAP AT BEDSIDE FOR SOB. NO SOB OR DISTRESS NOTED. WILL CONTINUE TO MONITOR.
[2016-10-30] MEDS: SIMVASTATIN 20 MG TAB PO SCH (21:00)
--- NOTE | 2016-10-30 21:36 | NUR ---
PO MEDS NOT GIVEN D/T PATIENT STRICT NPO, PATIENT SLEEPING COMFORTABLE IN BED, NO DISTRESS WILL CONTINUE TO CLOSELY MONITOR.
--- NOTE | 2016-10-30 22:30 | NUR ---
PATIENT SLEEPING COMFORTABLE, NO SIGN OF DISTRESS. WILL CONTINUE TO CLOSELY MONITOR.
[2016-10-31] VITALS: BP 121/68
--- NOTE | 2016-10-31 | NUR ---
VITAL SIGNS STABLE NO SIGN OF DISTRESS, WILL CONTINUE TO CLOSELY MONITOR
[2016-10-31] MEDS: ALBUTEROL SULFATE/IPRATROPIU 3 ML SOL IH SCH ×4 (00:53→19:00)
[2016-10-31] MEDS: DEXT 5% / NACL 0.45% 1,000 ML IV SCH ×2 (01:56→12:58)
--- NOTE | 2016-10-31 02:17 | NUR ---
PATIENT LYING AWAKE IN BED COMFORTABLE, NO SIGN OF DISTRESS, CALL LIGHT WITHIN REACH. WILL CONTINUE TO CLOSELY MONITOR.
[2016-10-31 04:00] VITALS: BP 124/83
--- NOTE | 2016-10-31 04:12 | NUR ---
VITAL SIGNS STABLE, NO SIGN OF DISTRESS, CALL LIGHT WITHIN REACH. WILL CONTINUE TO MONITOR.
[2016-10-31] MEDS: PIPER/TAZO 2.25GM/D5W PREMIX 50 ML IV SCH ×4 (05:44→23:27)
[2016-10-31] MEDS: LEVOTHYROXINE 0.05 MG TAB PO SCH (05:46)
[2016-10-31] MEDS: BLOOD GLUCOSE MONITORING 1 DEV DEV FS SCH ×4 (06:48→21:42)
[2016-10-31] MEDS: BUDESONIDE 0.5 MG/2 ML NEBU INH SCH ×3 (07:16→20:03)
--- NOTE | 2016-10-31 07:19 | NUR ---
ENDORSED PATIENT TO DAY RN AT BEDSIDE, PATIENT IN STABLE CONDITION
--- NOTE | 2016-10-31 07:20 | NUR ---
RECEIVED REPORT OF PT AT BEDSIDE FROM RISK INVESTIGATOR NURSE. INTRODUCED MYSELF AND UPDATED THE BOARD. PT IS AWAKE, A&OX1. PT HAS R HAND 24 GAUGE RUNNING D51/2NS@90ML/HR. PT IS NPO DUE TO PT FAILING SWALLOW EVAL. PT HAS BL MITTENS ON. SKIN INTACT. PT HAS SACRAL REDNESS. PT HAS BRUISING ON R ARM AND SCABS ON LEGS. SKIN INTACT. CALL LIGHT WITHIN REACH. WILL CONTINUE TO MONITOR.
[2016-10-31 08:00] VITALS: BP 124/87
[2016-10-31] MEDS: CALCIUM ACETATE 667 MG TAB PO SCH ×3 (08:00→16:45)
[2016-10-31] MEDS: FOLIC ACID 1 MG TAB PO SCH (09:00)
[2016-10-31] MEDS: DOCUSATE SODIUM 100 MG GELCAP PO SCH ×2 (09:00→21:00)
[2016-10-31] MEDS: CYANOCOBALAMIN 100 MCG TAB PO SCH (09:00)
[2016-10-31] MEDS: MULTIVITAMIN 1 TAB PO SCH (09:00)
[2016-10-31] MEDS: FAMOTIDINE 20 MG TAB PO SCH (09:00)
--- NOTE | 2016-10-31 09:00 | NUR ---
CLEANED AND CHANGED PT. PT TOLERATED WELL. WILL CONTINUE TO MONITOR.
[2016-10-31] MEDS: PANTOPRAZOLE 40 MG INJ VIAL IVP SCH (09:20)
[2016-10-31] MEDS ORDERED: POTASSIUM CHLORIDE 40 MEQ, LIDOCAINE 1% 25 MG in NACL 0.9% 250 ML IV SCH (11:00)
[2016-10-31 12:00] VITALS: BP 137/88
--- NOTE | 2016-10-31 13:05 | NUR ---
CALLED [facility] AND SPOKE WITH LILLIANA. SHE SAID THEY ARE WAITING FOR A DOCTOR TO DOCTOR CALL. SHE ALSO SAID BEDS ARE TIGHT I CALLED [facility] AND SPOKE WITH DOYN AND FAXED THE FACE SHEET AND ORDER TO HER.
--- NOTE | 2016-10-31 14:27 | NUR ---
LEFT A MESSAGE FOR PT'S PARENTS REGARDING CONSENT FOR PICC LINE.
--- NOTE | 2016-10-31 14:54 | NUR ---
CALLED [facility] AND SPOKE WITH DONY. SHE WILL HAVE HER PHYSICIAN LOOK AT THE INFORMATION. I GAVE HER DR. CAPPS PHONE NUMBER. I RECEIVED A CALL FROM LILLIANA FROM [facility] [place] . SHE SAID HER PHYSICIAN HAS DECLINED THIS PATIENT.
--- NOTE | 2016-10-31 14:55 | NUR ---
OBTAINED MOTHER DOROTA FAJARDO'S CONSENT BY PHONE. CONTACTED [employer]INTER[employer]ER FOR PICC LINE NURSE TO PUT IN PICC LINE. Addendum: 10/31/16 at 1633 by Mery Castillo RN CELL PHONE NUMBERS OF MOTHER AND FATHER: [phone], .
--- NOTE | 2016-10-31 15:00 | NUR ---
CALLED C[employer]ARET[employer] INSPECTOR REGARDING PICC LINE NURSE, CONSENT OBTAINED. CIGARETTE INSPECTOR AWARE, WILL ARRANGE AND CALL BACK.
[2016-10-31 16:00] VITALS: BP 123/46
--- NOTE | 2016-10-31 16:25 | NUR ---
SPEECH THERAPIST AT BEDSIDE, PERFORMED SWALLOW EVAL. PT DID NOT PASS.
--- NOTE | 2016-10-31 16:30 | NUR ---
Kacey [facility] [employer] STUD[employer] PROFESSOR VISITING AND PROVIDED HER CONTACT NUMBER CELL [phone] AND OFFICE [phone]. DISCUSSED WITH HER PROBLEM OF TRYING TO GET J TUBE PLACED DUE TO PER HLOC PT IS HIGH SURGICAL RISK DUE TO LARGE HERNIA AND CARDIAC ISSUES. CRISTINA STATED THAT SHE IS AWARE JORDAN BAER HAS DENIED SURGICAL INTERVENTION IN THE PAST DUE TO HIGH RISK.
--- NOTE | 2016-10-31 16:50 | NUR ---
* ST NOTE * Pt seen at bedside after clinician given clearance from Nursing. Bedside dysphagia and oral mechanism exams completed. See evaluation report for further details. Pt tolerating 0/1 alternating PO trial of puree apple sauce 3-4 CCs at a time via a teaspoon, accepting trial but unable to propel bolus back posteriorly to initiate swallow function despite maximal verbal, tactile & visual cues provided by clinician. Pt also accepting 1 PO trial of honey-thick apple juice 3-4 CC via a teaspoon but pt exhibiting labial leakage on left side, also unable to propel bolus posteriorly to initate swallow function. Clinician thus clearing oral cavity of bolus with pt requiring maximal verbal, tactile & visual cueing to allow clinician to do so. Oral care completed by clinician to clear oral cavity of residue/dried secretions/excess saliva. Pt and caregivers/nursing education completed regarding pt demonstrating impaired AP bolus transit as well as labial leakage, deeming pt unsafe for PO intake at this time with a poor prognosis for PO intake in the future, with pt indifferent to clinician's reports but caregivers/nursing agreeable with and verbalizing understanding of clinician's reports. It is thus recommended pt remain NPO and pt be referred to RD for alternative means of nutrition secondary to pt being unsafe for PO intake at this time, placing pt at high risk for dehydration & malnutrition, with caregivers/nursing agreeable with and verbalizing understanding of clinician's recommendations. No further ST follow up recommended at this time. Pt and caregiver/nursing education completed regarding results of evaluation; benefits of abiding by NPO status as well as frequent oral care; and prognosis for improvement; with pt indifferent to clinician's recommendations but with caregivers/nursing agreeable with and verbalizing understanding of clinician's recommendations. Recommend: - Continuation of strict NPO status - Continuation of frequent oral care secondary to pt exhibiting difficulty managing secretions - RD referral for alternative means of nutrition secondary to pt being unsafe for PO intake at this time, placing pt at high risk for malnutrition & dehydration No further ST follow up recommended at this time. G8996 CN G8997 CM G8998 CM NOMS Level 6 Time In/Out 16:10 - 16:40
--- NOTE | 2016-10-31 16:55 | NUR ---
PT'S PULSE WENT DOWN TO 37. PT IS SLEEPING. PULSE CAME BACK UP TO THE 50S. NO DISTRESS NOTED. WILL CONTINUE TO MONITOR.
--- NOTE | 2016-10-31 17:30 | NUR ---
PT IS SLEEPING IN BED. WILL CONTINUE TO MONITOR.
--- NOTE | 2016-10-31 17:30 | NUR ---
PICC LINE NURSE ANGLE CALLED AND STATED HE IS COMING TO INSERT PICC LINE TONIGHT. WILL PREPARE THE PICC LINE KIT AND STERILE GLOVES FOR HIM AND PLACE AT BEDSIDE.
--- NOTE | 2016-10-31 19:14 | NUR ---
SPOKE TO DR. CAPPS ON THE PHONE REGARDING THE NEED FOR U/S ORDER AND TEMPORARY RESTRAINT ORDER FOR PICC LINE INSERTION. DR. CAPPS STATED NURSE COULD PUT IN ORDERS FOR HIM. INFORMED DR. CAPPS THAT I AM NOT ALLOWED TO PUT IN ORDERS FOR RESIDENT. DR. CAPPS STATED HE IS NOT IN FRONT OF COMPUTER AND CANNOT PHYSICALLY PUT IN ORDERS. Addendum: 10/31/16 at 1 by Mery Castillo RN PUT THE ORDERS IN BUT WAS NOT NECESSARY SO CANCELLED ALL ORDERS.
--- NOTE | 2016-10-31 19:20 | NUR ---
ENDORSED PT TO THE NIGHTSHIFT NURSE AT BEDSIDE FOR CONTINUITY OF CARE. PT IN STABLE CONDITION.
--- NOTE | 2016-10-31 19:24 | NUR ---
in the room to placed picc line insertion, and hold courtneyn tx at this time
[2016-10-31 20:00] VITALS: BP 113/75
--- NOTE | 2016-10-31 20:00 | NUR ---
SEEN PT AWAKE, ALERT, APHASIC. PT HAS NEWLY PLACED MIDLINE DOUBLE LUMEN ON RT UPPER ARM BY PICC LINE NURSE. IVF RESUMED ORDERED. INITIAL ASSESSMENT DONE. PT HAS BILATERAL MITTENS ON FOR SAFETY. VITAL SIGNS CHECKED. HR:60. SAFETY REINFORCED. NO RESPIRATORY DISTRESS NOTED. WILL CONTINUE TO MONITOR
[2016-10-31] MEDS: SIMVASTATIN 20 MG TAB PO SCH (21:00)
--- NOTE | 2016-10-31 21:00 | NUR ---
BLOOD SUGAR CHECKED:135. NO COVERAGE NEEDED. PT APPEARS TO BE MOVING A LOT. MIDLINE ON RT UPPER ARM STILL DRY AND INTACT W/ IVF INFUSING WELL. WILL CONTINUE TO MONITOR.
[2016-11-01 00:08] VITALS: BP 133/98
--- NOTE | 2016-11-01 00:20 | NUR ---
SEEN PT AWAKE STILL MOVING A LOT. VITAL SIGNS CHECKED. PT HAD MEDIUM AMOUNT OF BROWN TO GREENISH LOOSE, STOOL. PERICARE RENDERED. PT REPOSITIONED FOR COMFORT. WILL CONTINUE TO MONITOR.
[2016-11-01] MEDS: ALBUTEROL SULFATE/IPRATROPIU 3 ML SOL IH SCH ×4 (01:22→18:45)
[2016-11-01 04:00] VITALS: BP 145/82
--- NOTE | 2016-11-01 04:00 | NUR ---
SEEN PT ASLEEP BUT AROUSABLE. VITAL SIGNS CHECKED. AM CARE WILL BE RENDERED BY ADMITTING REPRESENTATIVE. WILL CONTINUE TO MONITOR.
[2016-11-01] MEDS: DEXT 5% / NACL 0.45% 1,000 ML IV SCH ×3 (04:13→15:05)
[2016-11-01] MEDS: PIPER/TAZO 2.25GM/D5W PREMIX 50 ML IV SCH ×4 (05:30→23:27)
[2016-11-01] MEDS: LEVOTHYROXINE 0.05 MG TAB PO SCH (06:30)
--- NOTE | 2016-11-01 07:20 | NUR ---
RECEIVED REPORT FROM NIGHT NURSE AT PT BEDSIDE. PATIENT IS RESTING IN BED. AWAKENS TO NAME. DOES NOT FOLLOW SIMPLE COMMANDS. NONVERBAL. BEDBOUND. HAS MENDOZA IN PLACE TO GRAVITY. NO S/S OF RESPIRATORY DISTRESS NOTED. NO FLACC 0. BED IN LOWEST POSITION. SEIZURE PRECAUTION IN PLACE. WILL CONTINUE TO MONITOR.
[2016-11-01] MEDS: BLOOD GLUCOSE MONITORING 1 DEV DEV FS SCH ×4 (07:56→23:54)
[2016-11-01 08:00] VITALS: BP 147/80
[2016-11-01] MEDS: CALCIUM ACETATE 667 MG TAB PO SCH ×3 (08:00→17:55)
[2016-11-01] MEDS ORDERED: cloNIDine 0.1 MG TAB PO PRN (08:20)
[2016-11-01] MEDS: FAMOTIDINE 20 MG TAB PO SCH (09:00)
[2016-11-01] MEDS: CYANOCOBALAMIN 100 MCG TAB PO SCH (09:00)
[2016-11-01] MEDS: MULTIVITAMIN 1 TAB PO SCH (09:00)
[2016-11-01] MEDS: DOCUSATE SODIUM 100 MG GELCAP PO SCH ×2 (09:00→20:49)
[2016-11-01] MEDS: FOLIC ACID 1 MG TAB PO SCH (09:00)
[2016-11-01] MEDS: PANTOPRAZOLE 40 MG INJ VIAL IVP SCH (09:40)
[2016-11-01] MEDS ORDERED: TPN PER PHARMACY MC PRN (09:55)
--- NOTE | 2016-11-01 10:00 | NUR ---
ASSISTED PT IN CHANGING OF POSITIONS. MENDOZA IN PLACE, PATIENT HAD URINE LEAKING , CHECKED PATENCY OF MENDOZA, INTACT AND PATENT AT THIS TIME. WILL CONTINUE TO MONITOR.
[2016-11-01] MEDS ORDERED: MAG SULF 2000 MG/WATER PREMIX 50 ML IV SCH (10:30)
[2016-11-01 12:00] VITALS: BP 136/98
--- NOTE | 2016-11-01 12:00 | NUR ---
ASSISTED PT IN CHANGING OF POSITIONS. PATIENT HAS MENDOZA TO GRAVITY, PATENT AT THIS TIME.
--- NOTE | 2016-11-01 12:59 | NUR ---
11/01/16 RD FOLLOW-UP ASSESSMENT COMPLETED PLEASE REFER TO NUTRITION ASSESSMENT UNDER CARE ACTIVITY FOR ESTIMATED NUTRITIONAL NEEDS. 1. CONTINUE PARENTERAL NUTRITION SUPPORT - D10 4.25% AA AT 40 ML/HR + 120 ML 10% LIPID INFUSION VIA CENTRAL LINE (PROVIDES 609 KCAL, 40 G PROTEIN WITH GIR 1.3 MG/KG/MIN - MEETS 40% KCAL + 100% PROTEIN ESTIMATED NEEDS) 2. IF PO DIET INITIATION NOT APPROPRIATE AND WHEN MEDICALLY FEASIBLE, CONSIDER GOAL PARENTERAL NUTRITION SUPPORT - D20 4.25% AA AT 50 ML/HR + 120 ML 10% LIPID INFUSION VIA CENTRAL LINE (PROVIDES 1140 KCAL, 51 G PROTEIN WITH GIR 3.3 MG/KG/MIN - MEETS 75% KCAL + 100% PROTEIN ESTIMATED NEEDS) 3. RD TO FOLLOW-UP 2-3 DAYS; HIGH RISK DORI PATEL, NADIA
[2016-11-01] MEDS ORDERED: POTASSIUM CHLORIDE 10 MEQ TABER PO SCH (14:35)
[2016-11-01] MEDS ORDERED: Z-GUARD PASTE TP PRN (14:35)
--- NOTE | 2016-11-01 15:32 | NUR ---
PATIENT RESTING IN BED. NO S/S OF ACUTE DISTRESS NOTED.
[2016-11-01 16:00] VITALS: BP 121/78
[2016-11-01] MEDS ORDERED: FUROSEMIDE 40 MG/4 ML VIAL IVP SCH (16:46)
[2016-11-01] MEDS ORDERED: POTASSIUM CHLORIDE 40 MEQ, LIDOCAINE 1% 25 MG in NACL 0.9% 250 ML IV SCH (17:00)
--- NOTE | 2016-11-01 17:23 | NUR ---
* ST RE-EVALUATION NOTE * Pt seen at bedside with nursing present. Bedside dysphagia and oral mechanism re-evaluations completed. See evaluation report for further details. Clinician consulting with Nsg regarding pt's POC, discharge plan and hx of swallow evaluations. Pt now tolerating 7/7 alternating PO trials of puree apple sauce 4-5 CCs at a time via a teaspoon w/out s/s of aspiration, exhibiting minimal oral leakage secondary to possible athetosis of tongue. Pt also tolerating 5/5 alternating PO trials of honey-thick apple juice 3-4 CCs at a time via a teaspoon w/out s/s of aspiration. Pt exhibiting dramatically increased PO intake secondary to dramatically increased level of alertness as well as activity tolerance as compared to pt's previous swallow evaluations. It is thus recommended pt be DCed off NPO status and pt begin full meals of puree textures with honey-thick liquids for all meals. However because pt presents with hx of poor PO intake and severely decreased activity tolerance, and thus an inconsistency in pt's ability to tolerate PO intake, it is still recommended RD evaluate pt for alternative means of nutrition to assure pt receives adequate nutrition & hydration. Pt's diet may also be downgraded to oral gratification of puree textures for all meals if pt's activity tolerance and levels of alertness decline. Lastly, feed pt ONLY when she is alert and awake. No further ST follow up recommended at this time. Pt and caregiver/Nursing education completed regarding pt's hx of swallow evaluations; results of latest/today's evaluation; benefits of abiding by STRICT aspiration precautions and recommended PO diet consistency as well as providing pt with alternative means of nutrition; and prognosis for improvement; with pt indifferent to clinician's remarks but with caregiver/Nursing agreeable with and verbalizing understanding of clinician's recommendations. Recommend: - D/C NPO Status - PO diet consistency of Puree textures with Honey-thickened liquids for all meals - MD/Nsg may downgrade pt's diet to Oral Gratification of Puree textures with Honey-thickened liquids if pt demonstrates poor PO intake/decline in PO activity tolerance - Feed pt ONLY when pt is alert and awake - CLOSE supervision during PO intake by caregivers/staff to assure STRICT aspiration precautions are in place - Pt requires total assistance with feeding - RD Referral for alternative means of nutrition secondary to poor prognosis for adequate PO intake to maintain nutrition & hydration No further ST follow up recommended at this time. G8996 CK G8997 CJ G8998 CI NOMS Level 3 Time In/Out 16:45 - 17:15
[2016-11-01] MEDS: INSULIN LISPRO SLIDING SCALE 100 UNITS/ML VIAL SUBQ PRN (17:56)
--- NOTE | 2016-11-01 18:18 | NUR ---
SPOKE WITH PATIENT'S FATHER REGARDING PLAN OF CARE. VERBALIZED UNDERSTANDING
[2016-11-01] MEDS: BUDESONIDE 0.5 MG/2 ML NEBU INH SCH (18:46)
--- NOTE | 2016-11-01 18:58 | NUR ---
UNABLE TO KEEP HHN/MASK ON PATIENT. SHE KEPT TAKEN HHN OFF WITH HER TONGUE AND EVEN WITH HER MITTENS AFTER 5 MINUTES
--- NOTE | 2016-11-01 19:30 | NUR ---
ENDORSED PLAN OF CARE TO NIGHT NURSE NERA AT PT BEDSIDE. NO S/S OF ACUTE DISTRESS NOTED.
--- NOTE | 2016-11-01 19:40 | NUR ---
RECEIVED BEDSIDE REPORT FROM DAVID SAMPSON. PATIENT IS AWAKE, NONVERBAL, RESTING IN BED, FLACC 0. PATIENT HAS HX OF BEING MENTALLY CHALLENGED. PATIENT'S DX IS HYPOXIA, PNA, AND ALOC. NO SIGNS OF RESPIRATORY DISTRESS OR SOB NOTED. BREATH SOUNDS ARE DIMINISHED. BOWEL SOUNDS ARE HYPOACTIVE. THERE IS A DOUBLE LUMEN PICC IN THE PATIENT'S RIGHT UPPER ARM RECEIVING D51/2NS AT 25 ML/HR AND POTASSIUM CHLORIDE 40 MEQ WITH LIDOCAINE AT 68 ML/HR. SITE IS DRY, INTACT, AND ASYMPTOMATIC. THERE IS A MENDOZA CATHETER IN PLACE WITH LARGE AMOUNT OF PALE YELLOW URINE NOTED. SCDS ARE IN PLACE FOR VTE PROPHYLAXIS. VITAL SIGNS ARE WNL. HOB AT 30 DEGREES WITH BED IN LOW POSITION. WILL CONTINUE TO MONITOR PATIENT.
[2016-11-01 20:00] VITALS: BP 109/72
[2016-11-01] MEDS ORDERED: AMINO ACIDS 8.5% IV SCH (20:00)
[2016-11-01] MEDS ORDERED: FAT EMULSION 20% IV SCH (20:00)
[2016-11-01] MEDS ORDERED: DEXTROSE 50% IV SCH (20:00)
--- NOTE | 2016-11-01 20:19 | NUR ---
ADMINISTERED TPN VIA PICC LINE AT 40 ML/HR PER PHARMACY PROTOCOL. WILL CONTINUE TO MONITOR.
[2016-11-01] MEDS: SIMVASTATIN 20 MG TAB PO SCH (20:49)
--- NOTE | 2016-11-01 20:53 | NUR ---
TOLERATED DUE MEDICATIONS. NO SIGNS OF SOB OR DISCOMFORT NOTED. SAFETY MEASURES ENFORCED, WITH CALL LIGHT WITHIN REACH. WILL CONTINUE TO MONITOR PATIENT.
--- NOTE | 2016-11-01 21:20 | NUR ---
PATIENT ATTEMPTING TO PULL OUT PICC LINE. REORIENTED PATIENT TO SURROUNDINGS AND REINFORCED TO PATIENT TO NOT REMOVE PICC LINE. UNABLE TO ASSESS IF PATIENT COMPREHENDED PATIENT TEACHING. REINFORCEMENT IS NEEDED. CONTINUE TO MONITOR PATIENT.
[2016-11-01] MEDS: ONDANSETRON 4 MG/2 ML VIAL IM/IVP PRN (21:25)
--- NOTE | 2016-11-01 22:40 | NUR ---
PATIENT RESTING COMFORTABLY IN BED. NO SIGNS OF RESPIRATORY DISTRESS NOTED. BREATHING IS EVEN AND UNLABORED. CONTINUE TO MONITOR.
[2016-11-02] VITALS: BP 130/81
--- NOTE | 2016-11-02 | NUR ---
PATIENT RESTING COMFORTABLY IN BED. VITAL SIGNS ARE STABLE. FLACC 0. SAFETY MEASURES ENFORCED, WITH CALL LIGHT WITHIN REACH. CONTINUE TO MONITOR.
[2016-11-02] MEDS: ALBUTEROL SULFATE/IPRATROPIU 3 ML SOL IH SCH ×3 (01:00→13:22)
--- NOTE | 2016-11-02 01:00 | NUR ---
PATIENT REPOSITIONED FOR COMFORT. NO S/S OF SOB OR RESPIRATORY DISTRESS NOTED. SAFETY MEASURES ENFORCED, WITH CALL LIGHT WITHIN REACH. CONTINUE TO MONITOR PATIENT.
--- NOTE | 2016-11-02 01:06 | NUR ---
PATIENT AGITATED AND AND WILL NOT ALLOW HHN MASK ON FACE
--- NOTE | 2016-11-02 02:00 | NUR ---
PATIENT RESTING COMFORTABLY IN BED. NO SIGNS OF SHORTNESS OF BREATH NOTED. SAFETY MEASURES ENFORCED WITH CALL LIGHT WITHIN REACH. WILL CONTINUE TO MONITOR PATIENT.
[2016-11-02 04:00] VITALS: BP 124/84
--- NOTE | 2016-11-02 04:00 | NUR ---
PATIENT IS RESTING COMFORTABLY IN BED WITH NO SIGNS OF ACUTE RESPIRATORY DISTRESS OR DISCOMFORT NOTED. VITALS ARE WNL. FLACC 0. SAFETY MEASURES ENFORCED WITH CALL LIGHT WITHIN REACH. WILL CONTINUE TO MONITOR PATIENT.
[2016-11-02] MEDS: PIPER/TAZO 2.25GM/D5W PREMIX 50 ML IV SCH ×4 (05:42→23:55)
[2016-11-02] MEDS: BLOOD GLUCOSE MONITORING 1 DEV DEV FS SCH ×3 (06:06→17:43)
[2016-11-02] MEDS: INSULIN LISPRO SLIDING SCALE 100 UNITS/ML VIAL SUBQ PRN ×2 (06:08→17:42)
[2016-11-02] MEDS: LEVOTHYROXINE 0.05 MG TAB PO SCH (06:30)
--- NOTE | 2016-11-02 07:19 | NUR ---
PATIENT IN STABLE CONDITION. ALL NEEDS ATTENDED TO DURING SHIFT. ENDORSED CONTINUITY OF CARE TO DAVID SAMPSON.
--- NOTE | 2016-11-02 07:20 | NUR ---
RECEIVED REPORT FROM NIGHT NURSE AT PT BEDSIDE. PATIENT IS RESTING IN BED. AWAKENS TO NAME. DOES NOT FOLLOW SIMPLE COMMANDS. NONVERBAL. BEDBOUND. HAS MENDOZA IN PLACE TO GRAVITY. NO S/S OF RESPIRATORY DISTRESS NOTED. BED IN LOWEST POSITION. PATIENT HAS PICC LINE IN HIMANSHU, HAS TPN RUNNING. PATENT AND INTACT SITE. SEIZURE PRECAUTION IN PLACE. WILL CONTINUE TO MONITOR.
[2016-11-02] MEDS: BUDESONIDE 0.5 MG/2 ML NEBU INH SCH ×2 (07:25→19:39)
--- NOTE | 2016-11-02 07:33 | NUR ---
PT KEPT REMOVING AEROSOL MASK FROM FACE TX NOT FULLY COMPLETED DUE TO PT NON COMPLIANCE. PT IS NOT SOB AND NOT IN RESPIRATORY DISTRESS. B.S CLEAR BILATERALLY.
[2016-11-02 08:00] VITALS: BP 127/69
[2016-11-02] MEDS: CALCIUM ACETATE 667 MG TAB PO SCH ×3 (08:00→17:42)
[2016-11-02] MEDS: DEXT 5% / NACL 0.45% 1,000 ML IV SCH ×2 (08:25→14:44)
[2016-11-02] MEDS: PANTOPRAZOLE 40 MG INJ VIAL IVP SCH (08:27)
[2016-11-02] MEDS: FAMOTIDINE 20 MG TAB PO SCH (08:27)
[2016-11-02] MEDS: FOLIC ACID 1 MG TAB PO SCH (08:27)
[2016-11-02] MEDS: DOCUSATE SODIUM 100 MG GELCAP PO SCH ×2 (08:27→20:15)
[2016-11-02] MEDS: MULTIVITAMIN 1 TAB PO SCH (08:27)
[2016-11-02] MEDS: CYANOCOBALAMIN 100 MCG TAB PO SCH (08:27)
--- NOTE | 2016-11-02 11:20 | NUR ---
PATIENT'S FAMILY FRIEND CAREGIVER CAME TO VISIT. UPDATED WITH PLAN OF CARE AND DR. CAPPS CONCERNS FOR DIRECT FAMILY TO CALL IN FOR UPDATE.
--- NOTE | 2016-11-02 11:54 | NUR ---
PATIENT ASSISTED IN CHANGING OF POSITIONS. NO S/S OF ACUTE DISTRESS NOTED. PT RESTING IN BED. LETHARGIC.
[2016-11-02 12:00] VITALS: BP 114/65
--- NOTE | 2016-11-02 13:00 | NUR ---
PATIENT TOLERATED PO PUREED LUNCH. NO S/S OF ACUTE DISTRESS. PT RESTING IN BED.
--- NOTE | 2016-11-02 15:49 | NUR ---
SPOKE WITH MR FAJARDO AT [facility] [phone] AND HE IS IN AGREEMENT WITH PT TRANSFERRING TO [facility] UPON DISCHARGE.
[2016-11-02 16:00] VITALS: BP 100/54
--- NOTE | 2016-11-02 17:50 | NUR ---
SEED YEAST OPERATOR OF [facility] REVIEWED PATIENT'S CHART AT BEDSIDE FOR EVALUATION.
--- NOTE | 2016-11-02 18:10 | NUR ---
PT TOLERATED PO DINNER PUREED DIET.
--- NOTE | 2016-11-02 19:19 | NUR ---
SBAR REPORT GIVEN TO ADRIÁN GRADY AT PT BEDSIDE. NO S/S OF ACUTE DISTRESS NOTED.
--- NOTE | 2016-11-02 19:20 | NUR ---
RECEIVED REPORT, ASSUMED CARE. PT AOX1, APHASIC. RESPIRATION EVEN AND UNLABORED,NO SOB, NO S/S OF RESPIRATORY DISTRESS AT THIS TIME. PT SATURATING 92-96 ROOM AIR. NO FACIAL GRIMACING OR MOANING INDICATING PAIN. MENDOZA CATH IN PLACE, DRAINING LIGHT AIME URINE OUTPUT, NO HEMATURIA NOTED. PICC LINE 2 LUMEN PATENT TO HIMANSHU INTACT, DRESSING CLEAN. BRUISING TO HIMANSHU NOTED. TPN INFUSING WELL AT 40ML/HR. WILL DO Q2H TURNING DUE TO SACRAL REDNESS. IVF D5 1/2NS INFUSING AT 25ML/HR. ALL NEEDS ANTICIPATED. WILL CONTINUE TO MONITOR. FALL PRECAUTION OBSERVED AT ALL TIMES.
[2016-11-02 20:00] VITALS: BP 112/81
[2016-11-02] MEDS: FAMOTIDINE IV SCH (20:14)
[2016-11-02] MEDS: [UNRECOGNIZED DRUG - OTHER] IV SCH (20:14)
[2016-11-02] MEDS: MULTIVITAMIN IV SCH (20:14)
[2016-11-02] MEDS: DEXTROSE 50% IV SCH (20:14)
[2016-11-02] MEDS: FOLIC ACID IV SCH (20:14)
--- NOTE | 2016-11-02 20:14 | NUR ---
HOOKED NEW TPN BAG, NEW ORDER TO INFUSE AT 50ML/HR.
[2016-11-02] MEDS: SIMVASTATIN 20 MG TAB PO SCH (20:15)
--- NOTE | 2016-11-02 20:15 | NUR ---
ALL SCHEDULED MEDS ADMINISTERED, PT TOLERATED WELL.
[2016-11-02] MEDS: ONDANSETRON 4 MG/2 ML VIAL IM/IVP PRN (22:48)
--- NOTE | 2016-11-02 22:48 | NUR ---
PT OBSERVED INTERMITTENTLY COUGHING, APPEARS TO BE VOMITING WITH CLEAR SECRETIONS OF SALIVA. ELEVATED HOB TO 90DEG. ZOFRAN 4MG ADMINISTERED. WILL CONTINUE TO MONITOR.
--- NOTE | 2016-11-02 23:48 | NUR ---
REASSESSMENT FOR VOMITING, NO FURTHER COUGHING NOR VOMITING AT THIS TIME. WILL CONTINUE TO MONITOR.
[2016-11-03] VITALS: BP 104/62
--- NOTE | 2016-11-03 | NUR ---
ROUTINE VS CHECKED, NOTED PT O2 SATURATION 89-91% ROOM AIR. REPOSITIONED PT FOR COMFORT. NO ACUTE CHANGES NOTED. NO S/S OF RESPIRATORY DISTRESS. WILL CONTINUE TO MONITOR. Addendum: 11/03/16 at 0245 by Tere Alfonso RN BLOOD SUGAR CHECKED 137MG/DL- NO INSULIN COVERAGE PER SLIDING SCALE.
[2016-11-03] MEDS: INSULIN LISPRO SLIDING SCALE 100 UNITS/ML VIAL SUBQ PRN ×3 (00:56→12:42)
--- NOTE | 2016-11-03 01:50 | NUR ---
RT IN THE UNIT, INFORMED OF PATIENT'S O2 SAT- 89-91%, SHE ORDERED TO HOOK PT TO O2 AT 2L VIA NC. HOWEVER, UPON HOOKING THE CANNULA TO THE PATIENT, O2 SAT WENT UP TO 93-94% ROOM AIR. WILL CONTINUE TO MONITOR.
[2016-11-03 04:00] VITALS: BP 109/73
--- NOTE | 2016-11-03 04:49 | NUR ---
PT SLEEPING AT THIS TIME, EASILY AROUSABLE. RESPIRATION EVEN AND UNLABORED,NO SOB, NO S/S RESPIRATORY DISTRESS. O2 SAT 90-95% ROOM AIR. WILL CONTINUE TO MONITOR .
[2016-11-03] MEDS: PIPER/TAZO 2.25GM/D5W PREMIX 50 ML IV SCH ×3 (05:04→17:02)
[2016-11-03] MEDS: DEXT 5% / NACL 0.45% 1,000 ML IV SCH (05:05)
[2016-11-03] MEDS: BLOOD GLUCOSE MONITORING 1 DEV DEV FS SCH ×4 (06:27→17:10)
[2016-11-03] MEDS: LEVOTHYROXINE 0.05 MG TAB PO SCH (06:44)
--- NOTE | 2016-11-03 07:20 | NUR ---
PT AAOX1, NO FACIAL GRIMACING OR MOANING INDICATING PAIN. NO S/S RESPIRATORY DISTRESS. ENDORSED TO NEXT SHIFT FOR CONTINUITY OF CARE. PT IN STABLE CONDITION.
--- NOTE | 2016-11-03 07:21 | NUR ---
PT AWAKE, ALERT AND ORIENTED X1 AND APHASIC, NO SIGNS OF ACUTE DISTRESS. BREATHING EVEN AND UNLABORED BILATERALLY, BOWEL SOUNDS ACTIVE IN ALL 4 QUADRANTS, BOWEL AND BLADDER INCONTINENCE WITH MENDOZA CATHETER IN PLACE, SKIN INTACT WITH REDNESS ON SACRAL AREA AND ECCHYMOSIS TO RIGHT UPPER ARM, BEDBOUND, IV PATENT WITH NO REDNESS OR SWELLING IN RIGHT HAND, PICC LINE IN UPPER RIGHT CHEST TPN INFUSING, BED IN LOW POSITION WITH BILATERAL HALF SIDE RAILS UP, CALL LIGHT WITHIN REACH, RE-ORIENTED PATIENT TO UNIT AND HOSPITAL, PT UNABLE TO UNDERSTAND.
[2016-11-03] MEDS: BUDESONIDE 0.5 MG/2 ML NEBU INH SCH ×2 (07:45→19:09)
[2016-11-03 07:59] VITALS: BP 96/62
[2016-11-03] MEDS: PANTOPRAZOLE 40 MG INJ VIAL IVP SCH (08:46)
[2016-11-03] MEDS: CALCIUM ACETATE 667 MG TAB PO SCH ×3 (08:46→17:02)
[2016-11-03] MEDS: DOCUSATE SODIUM 100 MG GELCAP PO SCH ×2 (08:46→20:48)
[2016-11-03] MEDS: CYANOCOBALAMIN 100 MCG TAB PO SCH (08:51)
--- NOTE | 2016-11-03 10:35 | NUR ---
RECEIVED NEW LAB ORDERS, NOTED, WILL CARRY OUT.
[2016-11-03 12:00] VITALS: BP 130/79
--- NOTE | 2016-11-03 12:47 | NUR ---
11/03/16 RD FOLLOW UP COMPLETED PLEASE REFER TO NUTRITION PROGRESS NOTE UNDER CARE ACTIVITY FOR ESTIMATED NUTRITION NEEDS. RD RECOMMENDATIONS: 1. RECOMMEND CONTINUE RENAL PUREE DIET. 2. RECOMMEND CONTINUE PARENTERAL NUTRITION SUPPORT. 3. REASSESS DIET/NUTRITIONAL SUPPORT ON F/U. 4. RD TO FOLLOW-UP 2-3 DAYS; HIGH RISK BRISEIDA FLORES MBA, RD
--- NOTE | 2016-11-03 13:05 | NUR ---
FOUND MENDOZA CATHETER OUT OF PATIENT AND ON BED. INFORMED DR PIERRE, WILL AWAIT ORDERS FOR POSSIBLE NEW MENDOZA CATHETER.
--- NOTE | 2016-11-03 13:11 | NUR ---
RECEIVED NEW ORDER FOR MENDOZA CATHETER INSERTION, NOTED, WILL CARRY OUT.
[2016-11-03 16:00] VITALS: BP 124/71
--- NOTE | 2016-11-03 19:29 | NUR ---
ECEIVED REPORT, ASSUMED CARE. PT AOX1, APHASIC. RESPIRATION EVEN AND UNLABORED,NO SOB, NO S/S OF RESPIRATORY DISTRESS AT THIS TIME. PT SATURATING 90-94% ROOM AIR. NO FACIAL GRIMACING OR MOANING INDICATING PAIN. PICC LINE 2 LUMEN PATENT TO HIMANSHU INTACT, DRESSING CLEAN. BRUISING TO HIMANSHU NOTED. TPN INFUSING WELL AT 50ML/HR. WILL DO Q2H TURNING DUE TO SACRAL REDNESS. IVF D5 1/2NS INFUSING AT 25ML/HR. ALL NEEDS ANTICIPATED. WILL CONTINUE TO MONITOR. FALL PRECAUTION OBSERVED AT ALL TIMES.
--- NOTE | 2016-11-03 19:36 | NUR ---
PT AWAKE AND ALERT AND ORIENTED X1 APHASIC, NO SIGNS OF ACUTE DISTRESS. BED IN LOW POSITION BILATERAL HALF SIDE RAILS UP WITH CALL LIGHT WITHIN REACH. ENDORSED PATIENT TO WIRE WELDER NURSE FOR CONTINUITY OF CARE.
[2016-11-03 20:00] VITALS: BP 107/68
[2016-11-03] MEDS: [UNRECOGNIZED DRUG - OTHER] IV SCH (20:05)
[2016-11-03] MEDS: MULTIVITAMIN IV SCH (20:05)
[2016-11-03] MEDS: FOLIC ACID IV SCH (20:05)
[2016-11-03] MEDS: FAMOTIDINE IV SCH (20:05)
[2016-11-03] MEDS: DEXTROSE 50% IV SCH (20:05)
[2016-11-03] MEDS: SIMVASTATIN 20 MG TAB PO SCH (20:48)
--- NOTE | 2016-11-03 20:48 | NUR ---
ALL DUE MEDS GIVEN, PT TOLERATED WELL. NEW TPN FEEDING HOOKED, INFUSING AT 50ML/HR.
[2016-11-04] VITALS: BP 141/75
[2016-11-04] MEDS: PIPER/TAZO 2.25GM/D5W PREMIX 50 ML IV SCH ×4 (00:07→17:13)
--- NOTE | 2016-11-04 00:10 | NUR ---
BLOOD SUGAR CHECKED, 148MG/DL WITH NO INSULIN COVERAGE PER SLIDING SCALE. MENDOZA CATH INSERTED FR 16, X1 ATTEMPT. PT TOLERATED PROCEDURE WELL. CONTINUE ON Q2H TURNING FOR PRESSURE SORE PREVENTION. SACRAL REDNESS STILL PRESENT. NO OPEN SKIN NOTED AT THIS TIME. KEPT CLEAN AND DRY. WILL CONTINUE TO MONITOR.
[2016-11-04] MEDS: INSULIN LISPRO SLIDING SCALE 100 UNITS/ML VIAL SUBQ PRN ×4 (00:14→17:11)
[2016-11-04 04:00] VITALS: BP 123/81
[2016-11-04] MEDS: LEVOTHYROXINE 0.05 MG TAB PO SCH (05:56)
[2016-11-04] MEDS: BLOOD GLUCOSE MONITORING 1 DEV DEV FS SCH ×4 (06:36→17:09)
--- NOTE | 2016-11-04 07:27 | NUR ---
PT AAOX1, NO FACIAL GRIMACING OR MOANING INDICATING PAIN. NO S/S RESPIRATORY DISTRESS. ENDORSED TO NEXT SHIFT FOR CONTINUITY OF CARE. PT IN STABLE CONDITION.
--- NOTE | 2016-11-04 07:28 | NUR ---
PT AWAKE, OPENS EYES TO NAME WITH OCCASIONAL TRACKING, DOES NOT FOLLOW COMMANDS, APHASIC, NO SIGNS OF ACUTE DISTRESS. BREATHING EVEN AND UNLABORED BILATERALLY, BOWEL SOUNDS ACTIVE IN ALL 4 QUADRANTS, ABDOMEN SOFT AND FLAT. BOWEL AND BLADDER INCONTINENCE WITH MENDOZA IN PLACE. SKIN INTACT WITH SACRAL REDNESS AND ECCHYMOSIS ON UPPER RIGHT ARM. BEDBOUND, IV AND PICC PATENT NO REDNESS OR SWELLING. CONTINUOUS OXYGEN MONITOR IN PLACE, BED ALARM ON, BED IN LOW POSITION WITH BILATERAL HALF SIDE RAILS UP, CALL LIGHT WITHIN REACH. RE-ORIENTED PATIENT TO HOSPITAL AND UNIT, PT UNABLE TO UNDERSTAND.
[2016-11-04] MEDS: BUDESONIDE 0.5 MG/2 ML NEBU INH SCH ×2 (07:54→19:47)
[2016-11-04 08:00] VITALS: BP 124/81
[2016-11-04] MEDS: CALCIUM ACETATE 667 MG TAB PO SCH ×3 (09:59→17:15)
[2016-11-04] MEDS: DOCUSATE SODIUM 100 MG GELCAP PO SCH ×2 (09:59→21:00)
[2016-11-04] MEDS: PANTOPRAZOLE 40 MG INJ VIAL IVP SCH (10:00)
[2016-11-04] MEDS: CYANOCOBALAMIN 100 MCG TAB PO SCH (10:00)
--- NOTE | 2016-11-04 10:13 | NUR ---
RECEIVED NEW LAB ORDERS, NOTED, WILL CARRY OUT.
[2016-11-04 12:00] VITALS: BP 138/98
[2016-11-04] MEDS: DEXT 5% / NACL 0.45% 1,000 ML IV SCH (12:58)
[2016-11-04 16:00] VITALS: BP 150/79
--- NOTE | 2016-11-04 19:31 | NUR ---
PT AWAKE AND ALERT X1, APHASIC, NO SIGNS OF ACUTE DISTRESS. ENDORSED PT TO PHYSICAL THERAPIST TECHNICIAN NURSE FOR CONTINUITY OF CARE. BED IN LOW POSITION, WITH BILATERAL HALF SIDE RAILS UP, CALL LIGHT WITHIN REACH.
[2016-11-04] MEDS: ALBUTEROL SULFATE/IPRATROPIU 3 ML SOL IH PRN (19:47)
[2016-11-04] MEDS: MULTIVITAMIN IV SCH (19:59)
[2016-11-04] MEDS: FAMOTIDINE IV SCH (19:59)
[2016-11-04] MEDS: FOLIC ACID IV SCH (19:59)
[2016-11-04] MEDS: [UNRECOGNIZED DRUG - OTHER] IV SCH (19:59)
[2016-11-04] MEDS: DEXTROSE 50% IV SCH (19:59)
[2016-11-04 20:00] VITALS: BP 122/76
[2016-11-04] MEDS: SIMVASTATIN 20 MG TAB PO SCH (21:00)
--- NOTE | 2016-11-04 21:00 | NUR ---
ALL SCHEDULED MEDS GIVEN BY MOUTH ORDERED. PT TOLERATED WELL. PT OBSERVED TRYING TO PULL OUT PICC LINE BY RUBBING HER LEFT HAND TO HER HIMANSHU. REINFORCED OLD DRESSING WITH A SURESITE CLEAR DRESSING. MITTENS TO BOTH HAND IN PLACE. WILL CONTINUE TO MONITOR.
[2016-11-05] VITALS: BP 125/89
[2016-11-05] MEDS: PIPER/TAZO 2.25GM/D5W PREMIX 50 ML IV SCH
[2016-11-05] MEDS: INSULIN LISPRO SLIDING SCALE 100 UNITS/ML VIAL SUBQ PRN (00:10)
[2016-11-05] MEDS: BLOOD GLUCOSE MONITORING 1 DEV DEV FS SCH ×3 (00:11→12:17)
--- NOTE | 2016-11-05 00:11 | NUR ---
BLOOD SUGAR CHECKED 165MG/DL, ADMINISTERED 2 UNITS OF REGULAR INSULIN PER SLIDING SCALE. PT ASYMPTOMATIC. WILL CONTINUE TO MONITOR.
--- NOTE | 2016-11-05 00:31 | NUR ---
PT SLEEPING AT THIS TIME. RESPIRATION EVEN AND UNLABORED,NO S/S OF RESP DISTRESS. O2 SAT 92- 96% ROOM AIR. WILL CONTINUE TO MONITOR.
[2016-11-05 04:00] VITALS: BP 139/84
--- NOTE | 2016-11-05 04:21 | NUR ---
PT ASLEEP, NO S/S OF RESPIRATORY DISTRESS AT THIS TIME. WILL CONTINUE TO MONITOR.
[2016-11-05] MEDS: LEVOTHYROXINE 0.05 MG TAB PO SCH (06:22)
[2016-11-05] MEDS: BUDESONIDE 0.5 MG/2 ML NEBU INH SCH (07:24)
--- NOTE | 2016-11-05 07:27 | NUR ---
PT AAOX1, NO FACIAL GRIMACING OR MOANING INDICATING PAIN. NO S/S RESPIRATORY DISTRESS. ENDORSED TO NEXT SHIFT FOR CONTINUITY OF CARE. PT IN STABLE CONDITION.
--- NOTE | 2016-11-05 07:28 | NUR ---
PT AWAKE AND ALERT X1 WITH APHASIA. NO SIGNS OF ACUTE DISTRESS. BREATHING EVEN AND UNLABORED BILATERALLY. BOWEL SOUNDS ACTIVE IN ALL 4 QUADRANTS, NO DISTENTION. BOWEL AND BLADDER INCONTINENCE WITH MENDOZA IN PLACE NO REDNESS AROUND MENDOZA CATHETER. BEDBOUND. SKIN INTACT WITH REDNESS ON SACRUM AND BRUISING ON RIGHT UPPER ARM. IV PATENT WITH NO REDNESS OR SWELLING AROUND INSERTION SITE, PICC LINE PATENT IN UPPER RIGHT ARM WITH ECCHYMOSIS AROUND IV SITE. FLACC SCORE IS 0. BED IN LOW POSITION WITH BILATERAL HALF SIDE RAILS UP. CALL LIGHT WITHIN REACH. REORIENTED PATIENT TO HOSPITAL AND UNIT, PT UNABLE TO UNDERSTAND, PT APHASIC.
[2016-11-05 08:00] VITALS: BP 160/82
[2016-11-05] MEDS: CALCIUM ACETATE 667 MG TAB PO SCH ×2 (09:07→12:09)
[2016-11-05] MEDS: PANTOPRAZOLE 40 MG INJ VIAL IVP SCH (09:07)
[2016-11-05] MEDS: CYANOCOBALAMIN 100 MCG TAB PO SCH (09:07)
[2016-11-05] MEDS: DOCUSATE SODIUM 100 MG GELCAP PO SCH (09:07)
[2016-11-05] MEDS: DEXT 5% / NACL 0.45% 1,000 ML IV SCH (10:57)
[2016-11-05] MEDS ORDERED: BISAC-EVAC10 M1 RC (11:10)
[2016-11-05] MEDS ORDERED: Miscellaneous MC (11:10)
[2016-11-05] MEDS ORDERED: SYNTHROID0.05 M1 PO (11:10)
[2016-11-05] MEDS ORDERED: COLACE100 M1 PO (11:10)
[2016-11-05] MEDS ORDERED: ROBITUSSIN20 MG/1 ML PO (11:10)
[2016-11-05] MEDS ORDERED: HUMALOG SL100 UNITS/ SUBQ (11:10)
[2016-11-05] MEDS ORDERED: NOVAPLUS ONDA2 MG/M1 PO (11:10)
[2016-11-05] MEDS ORDERED: SIMVASTATIN20 M1 PO (11:10)
[2016-11-05] MEDS ORDERED: AMERINET CHOICE40 MG PO (11:10)
[2016-11-05] MEDS ORDERED: ACETAMINOPHEN325 M2 PO (11:10)
[2016-11-05] MEDS ORDERED: BLOOD GLUCOSE1 EACH FS (11:10)
[2016-11-05] MEDS ORDERED: VITAMIN B12100 MC1 PO (11:10)
[2016-11-05] MEDS ORDERED: PULMICORT0.5 MG/2 M INH (11:10)
[2016-11-05] MEDS ORDERED: IPRATROPIUM BROM3 M1 IH (11:10)
[2016-11-05] MEDS ORDERED: DEXTROSE 50 ML50 M3 IVP (11:10)
--- NOTE | 2016-11-05 11:34 | NUR ---
Social Service Note: I called [facility] and [facility] and spoke with caregiver Natalie, I informed her patient will be transfer to [facility] today. I provided Natalie with [facility]'s phone number and address.
[2016-11-05 12:00] VITALS: BP 142/94
--- NOTE | 2016-11-05 12:07 | NUR ---
FOUND PATIENT WITH PICC LINE COMPLETELY PULLED OUT OF THE PATIENT'S RIGHT ARM, LYING ON THE BED. PT AWAKE AND ALERT, NO SIGNS OF ACUTE DISTRESS. NOTIFIED CHARGE NURSE KILO SAMPSON.
--- NOTE | 2016-11-05 12:15 | NUR ---
NOTIFIED MD OF PICC LINE BEING PULLED OUT AND NEED FOR NEW ONE TO TRANSFER TO [facility].
--- NOTE | 2016-11-05 12:30 | NUR ---
OBTAINED CONSENT FOR PICC PLACEMENT FROM [facility] VIA TELEPHONE. 2ND NURSE TO WITNESS CONSENT IS ADRIÁN HAYDEN. Addendum: 11/05/16 at 1720 by Aleksandra Baez RN OBTAINED CONSENT FOR PICC PLACEMENT FROM [facility] VIA TELEPHONE. 2ND NURSE TO WITNESS CONSENT IS ADRIÁN HAYDEN. ALSO FATHER CONSENTED FOR PATIENT TO TRANSFER TODAY TO [facility] FOR CONTINUED CARE.
--- NOTE | 2016-11-05 12:44 | NUR ---
SPOKE WITH JOSE EDUARDO FROM [facility]. THE PATIENT CAN GO TO ROOM 52A UNDER DR. VARMA. VERONIKA SAMPSON AWARE.
--- NOTE | 2016-11-05 16:41 | NUR ---
PT AWAKE AND ALERT AND ORIENTED X1, APHASIC. BREATHING EVEN AND UNLABORED BILATERALLY. GAVE REPORT TO AMBULANCE, PT STABLE. TRANSFERRED TO [facility] FOR CONTINUITY OF CARE.
[2016-11-05] MEDS ORDERED: MULTIVITAMIN IV SCH (20:00)
[2016-11-05] MEDS ORDERED: FOLIC ACID IV SCH (20:00)
[2016-11-05] MEDS ORDERED: FAMOTIDINE IV SCH (20:00)
[2016-11-05] MEDS ORDERED: DEXTROSE 50% IV SCH (20:00)
[2016-11-05] MEDS ORDERED: [UNRECOGNIZED DRUG - OTHER] IV SCH (20:00)
== END 2016-11-05 16:41 | DRG 177 ==
LOC: MED 10:27 → OBSVTOIN 13:24 → INTOOBSV 13:24 → UNDOADMIN 13:24 → MTU 13:24
PROVIDERS: ADMIT Family Medicine; ATTEND Family Medicine
PROC: 5A09357 Assistance with Respiratory Ventilation, Less than 24 Consecutive Hours, Continuous Positive Airway Pressure (ICD-10-PCS; principal; 2016-10-23)
PROC: 0DJ08ZZ Inspection of Upper Intestinal Tract, Via Natural or Artificial Opening Endoscopic (ICD-10-PCS; 2016-10-26)
PROC: 30233N1 Transfusion of Nonautologous Red Blood Cells into Peripheral Vein, Percutaneous Approach (ICD-10-PCS; 2016-10-28)
PROC: 05H533Z Insertion of Infusion Device into Right Subclavian Vein, Percutaneous Approach (ICD-10-PCS; 2016-10-31)
PROC: B546ZZA Ultrasonography of Right Subclavian Vein, Guidance (ICD-10-PCS; 2016-10-31)
PROC: 02HV33Z Insertion of Infusion Device into Superior Vena Cava, Percutaneous Approach (ICD-10-PCS; 2016-11-05)
PROC: B548ZZA Ultrasonography of Superior Vena Cava, Guidance (ICD-10-PCS; 2016-11-05)
PROC: 3E0436Z Introduction of Nutritional Substance into Central Vein, Percutaneous Approach (ICD-10-PCS; 2016-11-05)
DX: J69.0 Pneumonitis due to inhalation of food and vomit (principal); J96.00 Acute respiratory failure, unspecified whether with hypoxia or hypercapnia; N17.0 Acute kidney failure with tubular necrosis; E43 Unspecified severe protein-calorie malnutrition; K85.90 Acute pancreatitis without necrosis or infection, unspecified; G93.41 Metabolic encephalopathy; G82.50 Quadriplegia, unspecified; D61.818 Other pancytopenia; E87.0 Hyperosmolality and hypernatremia; K44.0 Diaphragmatic hernia with obstruction, without gangrene; E87.5 Hyperkalemia; K21.9 Gastro-esophageal reflux disease without esophagitis; E03.9 Hypothyroidism, unspecified; E83.39 Other disorders of phosphorus metabolism; R13.10 Dysphagia, unspecified; E87.6 Hypokalemia; M41.9 Scoliosis, unspecified; K31.84 Gastroparesis; E11.65 Type 2 diabetes mellitus with hyperglycemia; E11.51 Type 2 diabetes mellitus with diabetic peripheral angiopathy without gangrene; E11.43 Type 2 diabetes mellitus with diabetic autonomic (poly)neuropathy; E11.22 Type 2 diabetes mellitus with diabetic chronic kidney disease; N18.9 Chronic kidney disease, unspecified; E11.649 Type 2 diabetes mellitus with hypoglycemia without coma; F79 Unspecified intellectual disabilities; H91.90 Unspecified hearing loss, unspecified ear; Z96.643 Presence of artificial hip joint, bilateral; Z90.12 Acquired absence of left breast and nipple; Z90.49 Acquired absence of other specified parts of digestive tract; Q24.9 Congenital malformation of heart, unspecified; Z79.2 Long term (current) use of antibiotics; Z79.899 Other long term (current) drug therapy; Z91.018 Allergy to other foods; Z68.27 Body mass index [BMI] 27.0-27.9, adult; Z85.3 Personal history of malignant neoplasm of breast; Z92.21 Personal history of antineoplastic chemotherapy